=== PATIENT | female | born 1950 | race Caucasian/White ===

== ENCOUNTER → 2016-04-17 | Outpatient (CLI) | payer MEDICARE, OTHER ==
--- NOTE | 2016-04-19 08:32 | MM ---
Reason for exam: screening (asymptomatic). Last mammogram was performed 1 year and 5 months ago. History: Patient is postmenopausal. Family history of breast cancer in sister at age 54. Physical Findings: A clinical breast exam by your physician is recommended on an annual basis and results should be correlated with mammographic findings. MG 3D Screening Mammo W/Cad Bilateral CC and MLO view(s) were taken. Prior study comparison: November 13, 2014, bilateral MG screening mammo w CAD. January 09, 2014, left breast MG diagnostic mammo LT w CAD. There are scattered fibroglandular densities. No significant changes when compared with prior studies. ASSESSMENT: Negative, BI-RAD 1 RECOMMENDATION: Routine screening mammogram of both breasts in 1 year.
== END | disposition home or self-care (01) ==
LOC: RADMAMWWP 14:47
PROVIDERS: ATTEND Pediatrics
DX: Z12.31 Encounter for screening mammogram for malignant neoplasm of breast (principal)
CPT/HCPCS: 77052; 77063; G0202

== ENCOUNTER → 2016-05-25 | Outpatient (CLI) | payer MEDICARE, OTHER ==
--- NOTE | 2016-05-25 16:44 | CT ---
EXAMINATION TYPE: CT sinus wo con DATE OF EXAM: 05/25/2016 4:36 PM COMPARISON: NONE HISTORY: left sided maxillary pain CT DLP: 559.0 mGycm Automated exposure control for dose reduction was used. FINDINGS: Visualized intracranial structures are normal. Soft tissues are unremarkable. There is been a previous ethmoidectomy and bilateral Salazar-Caleb procedures.. There is minimal mucos al thickening involving the medial wall of the left sphenoid sinus. There is no bony destructive lesi on of bone expansion. IMPRESSION: 1. POSTSURGICAL CHANGE. 2. MINIMAL, CHRONIC MUCOPERIOSTEAL THICKENING INVOLVING THE LEFT SPHENOID SINUS.
== END | disposition home or self-care (01) ==
LOC: RADCTMAIN 16:18
PROVIDERS: ATTEND Otolaryngology
DX: J34.89 Other specified disorders of nose and nasal sinuses (principal); Z98.890 Other specified postprocedural states
CPT/HCPCS: 70486

== ENCOUNTER → 2016-07-03 | Outpatient (CLI) | payer MEDICARE, OTHER ==
[2016-07-03 11:38] LABS: Basophils # (A) 0.1 k/uL (0-0.2); Basophils % (A) 1 %; CH 29.1; CHCM 32.2; Eosinophils # (A) 0.2 k/uL (0-0.7); Eosinophils % (A) 3 %; HCT 41.5 % (34.0-46.0); HDW 2.62; HGB 13.3 gm/dL (11.4-16.0); Luc # (Auto) 0.23; Luc % (Auto) 3; Lymphocytes # (A) 2.7 k/uL (1.0-4.8); Lymphocytes % (A) 35 %; MCV 90.9 fL (80.0-100.0); Mean Platelet Volume 8.9; Monocytes # (A) 0.4 k/uL (0-1.0); Monocytes % (A) 5 %; Neutrophils # (A) 4.1 k/uL (1.3-7.7); Neutrophils % (A) 53 %; RBC 4.57 m/uL (3.80-5.40); RDW 13.8 % (11.5-15.5); WBC 7.7 k/uL (3.8-10.6); WBC (Perox) 7.96
[2016-07-03 11:43] LABS: INR 1.1 (<1.1); Partial Thromboplastin Time 24.4 sec (22.0-30.0); Prothrombin Time 10.7 sec (9.0-12.0)
[2016-07-03 11:56] LABS: Appearance,Urine Clear (Clear); Bilirubin,Urine Negative (Negative); Glucose,Urine (UA) Negative (Negative); Ketones,Urine Negative (Negative); Leukocyte Esterase,Urine Negative (Negative); Nitrite,Urine Negative (Negative); PH, Urine 5.5 (5.0-8.0); Protein,Urine Negative (Negative); Specific Gravity,Urine 1.005 (1.001-1.035); UA Billing (MACRO vs. MICRO) CHEM; Urobilinogen,Urine <2.0 mg/dL (<2.0)
[2016-07-03 12:03] LABS: ALT 21 U/L (9-52); AST 17 U/L (14-36); Alkaline Phosphatase 63 U/L (38-126); Anion Gap 13 mmol/L; Blood Urea Nitrogen 16 mg/dL (7-17); Calcium 9.3 mg/dL (8.4-10.2); Carbon Dioxide 29 mmol/L (22-30); Chloride 100 mmol/L (98-107); Glucose 112 mg/dL (74-99); Non-African American GFR(MDRD) >60 (>60 ml/min/1.73 sqM); Potassium 4.7 mmol/L (3.5-5.1); Sodium 142 mmol/L (137-145); Total Bilirubin 0.5 mg/dL (0.2-1.3)
== END | disposition home or self-care (01) ==
LOC: LABPAT 11:10
PROVIDERS: ATTEND Orthopaedic Surgery
DX: Z01.812 Encounter for preprocedural laboratory examination (principal)
CPT/HCPCS: 80053; 81003; 85025; 85610; 85730; 87070

== ENCOUNTER 2016-07-25 08:44 | Inpatient (IN) | payer MEDICARE, OTHER ==
[~2016-07-25 08:44] MED LIST: DEXAMETHASONE SOD PHOSPHATE 10 MG/ML 1 ML VIAL IV ONE; HYDROmorphone 1 MG/ML 1 ML SYRINGE IVP PRN; LACTATED RINGERS 1,000 ML IV SCH; MIDAZOLAM 2 MG/2 ML VIAL IV PRN; ONDANSETRON 4 MG/2 ML VIAL IVP ONE; ceFAZolin 2 GM in SODIUM CHLORIDE 0.9% 100 ML IVPB ONE
[2016-07-25] MEDS ORDERED: ROPIVACAINE 246.25 MG, EPINEPHrine 0.5 MG, KETOROLAC 30 MG, cloNIDine HCL/PF 80 MCG, WA... MISCELLANE ONE ×5 (09:14)
[2016-07-25] MEDS ORDERED: ACETAMINOPHEN TAB 500 MG TAB PO STA (09:18)
[2016-07-25] MEDS ORDERED: LIDOCAINE 1% 20 ML VIAL (10MG/ML) FOR IV START INTRADERMA ONE (09:38)
[2016-07-25] MEDS ORDERED: TRANEXAMIC ACID 1,000 MG in SODIUM CHLORIDE 0.9% 100 ML IVPB STA ×4 (09:52)
[2016-07-25] MEDS ORDERED: fentaNYL (PF) 50 MCG/ML 2 ML AMP IV ONE (10:12)
[2016-07-25] MEDS ORDERED: ROPIVACAINE 1,100 MG, SODIUM CHLORIDE 0.9% 330 ML MISCELLANE PRN ×2 (10:43)
--- NOTE | 2016-07-25 10:45 | P.ONQ ---
Anesthesiology Proc Note - PNB - Peripheral Nerve Block Performed Left Adductor Canal Infusion Time Out Performed: Yes Indication: Acute Post-Operative Pain, Analgesia Specifically requested for management of pain by DrAbigail: Jesse Doss Sedation Type: Sedate with meaningful contact maintained Preparation: Sterile Prep Position: Supine Catheter Depth at Skin (cm): 9 Catheter: Indwelling Needle Types: On-Q Needle Size: 100mm (4") Needle Gauge: 20 Technique: Ultrasound Injectate: 0.5% Ropivacaine (see comment for volume) (20 cc) Blood Aspirated: No Pain Paresthesia on Injection Noted: No Resistance on Injection: Normal Events: Uneventful and Well Tolerated
[2016-07-25] MEDS ORDERED: SODIUM CHLORIDE 0.9% 100 ML BAG ONE (11:05)
[2016-07-25] MEDS ORDERED: fentaNYL (PF) 50 MCG/ML 2 ML AMP ONE (11:05)
[2016-07-25] MEDS ORDERED: MIDAZOLAM 2 MG/2 ML VIAL ONE (11:05)
[2016-07-25] MEDS ORDERED: diphenhydrAMINE 50 MG/ML 1 ML VIAL ONE (11:05)
[2016-07-25] MEDS ORDERED: TRANEXAMIC ACID 1,000 MG/10 ML VIAL ONE (11:05)
[2016-07-25] MEDS ORDERED: ceFAZolin 3,000 MG in SODIUM CHLORIDE 0.9% IRRIGATIO 3,000 ML IRRIGATION ONE (11:36)
--- NOTE | 2016-07-25 12:35 | P.OP ---
Date of Procedure: 07/25/16 Preoperative Diagnosis: Severe osteoarthritis left knee Postoperative Diagnosis: Severe osteoarthritis left knee Procedure(s) Performed: Left total knee arthroplasty Implants: [employer]hew Oxinium femoral component size 3, left [employer]hew Rayna II left nonporous tibial baseplate size 3 [employer]hew size 11 mm Legion XLPE dished articular insert, size 3-4 [employer]hew Rayna II resurfacing patellar component, 29 mm, 7.5 mm thick All components were cemented using Ml bone cement.. The articulation is ceramic on polyethylene. Anesthesia: spinal Surgeon: Jesse Doss Consumer Educator #1: Karey Nielsen Consumer Educator #2: Raisa Ch Estimated Blood Loss (ml): 50 Pathology: other (Bone and cartilage) Condition: stable Disposition: PACU Indications for Procedure: After failure of conservative treatment we discussed the surgical and nonsurgical treatment options at length. Patient wishes to proceed with a total knee arthroplasty. Complications specific to this procedure were discussed at length, including but not limited to infection, bleeding, stiffness , and nerve injury. Patient is aware of all these complications and informed consent was obtained Operative Findings: The operative findings are consistent with severe osteoarthritis of the left knee Description of Procedure: Patient was seen in the preoperative area consent was reviewed and operative site was marked with a skin marker. An adductor canal pain catheter was placed by anesthesia in the preoperative area. Patient was then brought to the operating room and given preoperative antibiotics intravenously. A spinal anesthetic was administered by the anesthesia department. A tourniquet was placed on the upper thigh and the lower extremity was prepped and draped in usual sterile fashion. A gram of transexamic acid was given. A universal timeout was then performed which confirmed the patient's name, surgical site, ALLERGIES, and consent. The lower extremity was then exsanguinated and tourniquet was inflated to 250 mmHg. A standard and anterior midline approach to the knee was performed. The skin and subcutaneous tissue was dissected down to the patellar tendon. A medial parapatellar arthrotomy was then performed. The knee was then extended, the patellar was everted, and the knee was again flexed. Anterior horns of both menisci were excised, and a release was performed to the posterior medial aspect of the knee. On gross visual inspection, there was complete loss of articular cartilage in the medial and patellofemoral joint spaces. There was also significant cartilage damage in the lateral compartment. There were multiple periarticular osteophytes which were then removed with a Ronguer. The femoral canal was then opened with the appropriate drill, and the intramedullary femoral cutting guide was then placed and set for 4 of valgus. The distal femoral cutting block was then pinned in place, and the distal femur was then cut. The cutting block was then removed and the cut was checked for flatness. Next, the sizing guide was then placed and set for 3 external rotation based off of the epicondylar axis and Whitesides line. After the femur was sized, the appropriate 4-in-1 cutting block was then pinned in place. The anterior condyles were cut without notching. The posterior and chamfer cuts were performed while protecting the collateral ligaments. The cutting block was then removed, and the femoral canal was plugged with autologous bone. Attention was then directed to the tibia. The remaining ACL was removed with a Ronguer, and the tibia was then gently subluxed forward with a large bent knee retractor. Any remaining menisci was excised. The posterior lateral corner was cauterized in order to cauterize the lateral geniculate artery. The extra medullary tibial cutting guide was then placed, set for the appropriate rotation , slope, and depth of resection. The proximal tibia cutting guide was then pinned in place. Proximal tibia was then cut and sized. Next trials were then placed with the appropriate-sized insert. The knee was able to fully extend and flex to 130 and was stable throughout all range of motion. The knee was then extended, patella everted. Patella was then measured, and then using an osteotomy guide, the patella was cut at the appropriate level. The patella was then measured and drilled and the patella trial was then placed. The knee was then taken through range of motion with the patella trial and the patella tracked normally. The knee was then extended patella trial was then removed and the patella was everted. Knee was then flexed and lug holes were drilled through the femoral trial and the femoral trial was then removed. The tibial was then exposed, and the tibial broach guide was then pinned in place after it was set for the appropriate rotation to allow for the most coverage without overhang. The tibia was then reamed and broached. The cut surfaces of bone were then irrigated with pulsatile lavage. The posterior structures were injected with the ropivacaine solution. The knee was also irrigated with Irrisept solution. The components were then opened, the cement was mixed, and the components were then cemented in place. The cement was allowed to harden with the knee in full extension. While the cement was hardening, the remaining soft tissues were then injected with a ropivacaine solution, which consisted of 246.25 mg of ropivacaine, 0.5 mg of epinephrine, 30 mg of Toradol, 80 g of clonidine, and 48.45 mL of sterile water, for a total of 100 mL of fluid injected. After the cemented hardened. The tourniquet was released, and hemostasis was obtained. A second gram of transexamic acid was given. The knee was again irrigated. The knee was again taken through range of motion and found to be stable throughout all range of motion of 0-130 , and the patella tracked normally. The fascia was then closed with #2 strata fix suture. The subcutaneous tissue was closed with 3-0 Vicryl and 3-0 strata fix. Dermabond tape was used for the skin and placed with the knee in flexion. The patient was placed in a sterile dressing. Patient was then transferred to recovery room in stable condition. The podiatrist assistant SAÚL Haskins was required due the complexity surgery and the need for a skilled surgical scheduler. She assisted in positioning, draping , retraction, and closure of the wound.
[2016-07-25] MEDS ORDERED: BISACODYL 10 MG SUPP RECTAL PRN (12:48)
[2016-07-25] MEDS ORDERED: DIAZEPAM 5 MG TAB PO PRN ×2 (12:48)
[2016-07-25] MEDS ORDERED: HYDROcodone/APAP 5-325MG 1 EACH TAB PO PRN (12:48)
[2016-07-25] MEDS ORDERED: HYDROmorphone 1 MG/ML 1 ML SYRINGE IVP PRN ×3 (12:48)
[2016-07-25] MEDS ORDERED: MAGNESIUM HYDROXIDE 2,400 MG/10 ML CUP PO PRN (12:48)
[2016-07-25] MEDS ORDERED: NALOXONE 0.4 MG/ML 1 ML VIAL IV PRN (12:48)
[2016-07-25] MEDS ORDERED: ONDANSETRON 4 MG/2 ML VIAL IVP PRN (12:48)
--- NOTE | 2016-07-25 13:38 | XR ---
EXAMINATION TYPE: XR knee limited LT DATE OF EXAM: 07/25/2016 1:18 PM CLINICAL HISTORY: Postoperative evaluation Two views of the left knee are submitted. Identified are changes of total knee arthroplasty with fem oral and tibial components appearing well seated. Postsurgical soft tissue changes are noted. Align ment is anatomic.
[2016-07-25] MEDS: SODIUM CHLORIDE 0.9% 1,000 ML IV SCH (15:18)
[2016-07-25 15:29] VITALS: BMI 38.0
[2016-07-25] MEDS: ceFAZolin 2 GM in SODIUM CHLORIDE 0.9% 100 ML IVPB SCH (18:44)
[2016-07-25 19:06] LABS: Appearance,Urine Clear (Clear); Bilirubin,Urine Negative (Negative); Glucose,Urine (UA) Negative (Negative); Ketones,Urine Negative (Negative); Leukocyte Esterase,Urine Negative (Negative); Nitrite,Urine Negative (Negative); PH, Urine 6.5 (5.0-8.0); Protein,Urine Negative (Negative); Specific Gravity,Urine 1.003 (1.001-1.035); UA Billing (MACRO vs. MICRO) CHEM; Urobilinogen,Urine <2.0 mg/dL (<2.0)
[2016-07-25] MEDS: ASPIRIN 325 MG TAB PO SCH (20:22)
[2016-07-25] MEDS: SENNOSIDES-DOCUSATE SODIUM 1 EACH TAB PO SCH (20:25)
[2016-07-25] MEDS: DOCUSATE 100 MG CAP PO SCH (20:25)
[2016-07-25] MEDS: LISINOPRIL 10 MG TAB PO SCH (20:26)
[2016-07-25] MEDS: PANTOPRAZOLE 40 MG TABLET PO SCH (20:27)
[2016-07-25] MEDS: MONTELUKAST 10 MG TAB PO SCH (20:27)
[2016-07-25] MEDS: ATORVASTATIN 10 MG TAB PO SCH (20:27)
[2016-07-25] MEDS: FLECAINIDE 50 MG TAB PO SCH (20:27)
--- NOTE | 2016-07-25 20:50 | CONS ---
DATE OF CONSULTATION: REASON FOR CONSULTATION: Advice regarding hypertension and other multiple medical issues, requested by Dr. Doss. HISTORY OF PRESENT ILLNESS: This 66-year-old woman with a past medical history of asthma, history of GERD, hypertension, hyperlipidemia, history of DJD, history of right knee arthroplasty, being followed by a primary physician in the [place] area, underwent left total knee joint arthroplasty for severe DJD. The patient is being closely monitored at this time. There is no history of any fever, rigor, or chills. No history of any headache, loss of consciousness, seizures. No chest pain, palpitation, hematochezia, melena at this time. PAST MEDICAL HISTORY: 1. History of asthma. 2. GERD. 3. Hypertension. 4. Hyperlipidemia. 5. History of DJD. 6. Cardiac arrhythmia. 7. History of right knee arthroplasty. HOME MEDICATIONS: 1. Zocor 20 mg at bedtime. 2. Prilosec 20 mg at bedtime. 3. Singulair 10 mg at bedtime. 4. Zestril 10 mg at bedtime. 5. Levaquin 500 mg daily. 6. [place] 2 tablets q.6 p.r.n. 7. Tambocor 50 mg b.i.d. 8. Colace 100 mg b.i.d. 9. Qvar 80 mg 1 puff b.i.d. 10. Ventolin HFA 2 puffs q.6 p.r.n. ALLERGIES: NONE. FAMILY HISTORY: History of diabetes mellitus in the family. SOCIAL HISTORY: No history of smoking. No history of alcohol intake. REVIEW OF SYSTEMS: ENT: No diminishing hearing. No diminished vision. CARDIOVASCULAR SYSTEM: No angina, palpitations. RESPIRATORY: No cough, hemoptysis. GI: No nausea, vomiting. : No dysuria. NERVOUS SYSTEM: No numbness, weakness. ALLERGY/IMMUNOLOGY: As mentioned earlier. HEMATOLOGY/ONCOLOGY: No history of anemia. ENDOCRINE: As mentioned earlier. CONSTITUTIONAL: As mentioned earlier. DERMATOLOGY: Negative. RHEUMATOLOGY: Negative. PSYCHIATRY: As mentioned earlier. PHYSICAL EXAMINATION: Alert and oriented x3. Pulse 72, blood pressure 152/87, respiration 20, temperature 98.4, pulse ox 99% on room air. HEENT: Conjunctivae normal. Oral mucosa moist. NECK: No jugular venous distention. No carotid bruit. No lymph node enlargement. CARDIOVASCULAR SYSTEM: S1 normal. S2 normal. No S3. No S4. RESPIRATORY SYSTEM: Breath sounds diminished at the bases. No rhonchi. No crackles. ABDOMEN: Soft, nontender. No mass palpable. LEGS: Status post left knee arthroplasty. NERVOUS SYSTEM: Higher functions as mentioned earlier. Moves all 4 limbs. No focal motor or sensory deficit. LYMPHATICS: No lymph node palpable in neck, axillae or groin. SKIN: No ulcer, rash, bleeding. JOINTS: No active deformity. ASSESSMENT: 1. Status post left total knee joint arthroplasty. 2. History of asthma. 3. History of hypertension, essential. 4. History of hyperlipidemia. 5. History of gastroesophageal reflux disease. 6. History of degenerative joint disease. 7. History of cardiac arrhythmia. 8. History of right knee arthroplasty. 9. FULL CODE. RECOMMENDATIONS AND DISCUSSION: In this 66-year-old woman who presented with multiple complex medical issues, we will monitor the patient closely, continue the current medications, continue with symptomatic treatment. Otherwise, resume the home medications. DVT prophylaxis. Incentive spirometry. Will follow the patient closely with you. Baseline labs also will be recommended. Patient may be asked to follow up with her primary physician closely regarding the above-mentioned issues. Thank you, Dr. Doss, for letting us participate in the care of this patient.
[2016-07-25] MEDS: HYDROcodone/APAP 5-325MG 1 EACH TAB PO PRN (21:02)
[2016-07-25] MEDS: ALBUTEROL NEBULIZED 2.5 MG/3 ML INHALATION PRN (21:54)
[2016-07-25] MEDS: BUDESONIDE 0.5 MG/2 ML NEBU INHALATION SCH (21:54)
[2016-07-26] MEDS: SODIUM CHLORIDE 0.9% 1,000 ML IV SCH (00:54)
[2016-07-26] MEDS: ceFAZolin 2 GM in SODIUM CHLORIDE 0.9% 100 ML IVPB SCH (02:02)
[2016-07-26] MEDS: HYDROcodone/APAP 5-325MG 1 EACH TAB PO PRN ×3 (07:16→22:22)
[2016-07-26] MEDS: hydrOXYzine PAMOATE 25 MG CAP PO PRN ×2 (07:17→13:46)
--- NOTE | 2016-07-26 07:44 | P.PN ---
Progress Note - Text 0710 anesthesia POD 1. Patient is status post left total knee replacement under spinal anesthesia with a left adductor canal catheter placed for postoperative pain relief. Ropivacaine 0.2% is running at 8 mL per hour vas is 0, 2. Catheter site is clean and dry.
[2016-07-26 07:50] LABS: Basophils % (A) 0 %; CH 29.2; CHCM 32.8; Eosinophils % (A) 0 %; HCT 33.9 % (34.0-46.0); HDW 2.65; HGB 11.3 gm/dL (11.4-16.0); Luc # (Auto) 0.24; Luc % (Auto) 2; Lymphocytes # (A) 1.6 k/uL (1.0-4.8); Lymphocytes % (A) 14 %; MCH 29.9 pg (25.0-35.0); MCHC 33.4 g/dL (31.0-37.0); MCV 89.6 fL (80.0-100.0); Mean Platelet Volume 8.2; Monocytes # (A) 0.8 k/uL (0-1.0); Monocytes % (A) 7 %; Neutrophils # (A) 8.8 k/uL (1.3-7.7); Neutrophils % (A) 77 %; RBC 3.79 m/uL (3.80-5.40); RDW 13.6 % (11.5-15.5); WBC 11.5 k/uL (3.8-10.6); WBC (Perox) 11.79
[2016-07-26] MEDS: ALBUTEROL NEBULIZED 2.5 MG/3 ML INHALATION PRN ×2 (08:00→19:02)
[2016-07-26] MEDS: BUDESONIDE 0.5 MG/2 ML NEBU INHALATION SCH ×2 (08:00→19:02)
--- NOTE | 2016-07-26 08:00 | P.PN ---
Subjective Principal diagnosis: Status post total knee arthroplasty This is a well-appearing 66yo female who is status post total left knee arthroplasty. This is post op day #1. Patient was seen and evaluated at bedside with Dr. Doss. Patient has not been up with therapy. Patient has no new complaints. Objective - Vital Signs Vital signs: Vital Signs Temp 97.5 F L 07/26/16 07:39 Pulse 63 07/26/16 07:39 Resp 16 07/26/16 07:39 BP 101/67 07/26/16 07:39 Pulse Ox 99 07/26/16 07:39 Intake & Output 07/25/16 07/26/16 07/26/16 18:59 06:59 18:59 Intake Total 5300 1040 Output Total 650 Balance 4650 1040 Weight 94.347 kg Intake: IV 5300 Intake, IV Titration 450 Amount Sodium Chloride 0.9% 1, 450 000 ml @ 75 mls/hr IV . [id number] STEPHANY Rx#:[id number] Oral 590 Output: Urine 600 Estimated Blood Loss 50 Other: Voiding Method Toilet Toilet # Voids 1 - Exam Vital signs are stable. Calf is soft and nontender. Incision is clean, dry, and intact. Neurovascular status intact. Patient has full foot and ankle motion. Assessment and Plan (1) Osteoarthritis of right knee Status: Acute (2) Primary osteoarthritis of right knee Status: Acute (3) Status post right knee replacement Status: Acute Plan: Weightbearing as tolerated with a walker CPM daily Daily dressing changes, keep incision clean and dry Possible discharge home tomorrow.
[2016-07-26 08:19] LABS: Anion Gap 10 mmol/L; Blood Urea Nitrogen 17 mg/dL (7-17); Calcium 8.8 mg/dL (8.4-10.2); Carbon Dioxide 27 mmol/L (22-30); Chloride 105 mmol/L (98-107); Glucose 92 mg/dL (74-99); Non-African American GFR(MDRD) >60 (>60 ml/min/1.73 sqM); Potassium 4.1 mmol/L (3.5-5.1); Sodium 142 mmol/L (137-145)
[2016-07-26] MEDS ORDERED: MELOXICAM 7.5 MG TAB PO SCH ×2 (09:00)
[2016-07-26] MEDS: MELOXICAM 7.5 MG TAB PO SCH (09:13)
[2016-07-26] MEDS: FLECAINIDE 50 MG TAB PO SCH ×2 (09:13→20:31)
[2016-07-26] MEDS: DOCUSATE 100 MG CAP PO SCH ×2 (09:13→20:31)
[2016-07-26] MEDS: ASPIRIN 325 MG TAB PO SCH ×2 (09:13→20:31)
--- NOTE | 2016-07-26 18:21 | PN ---
DATE OF SERVICE: 07/26/2016 This 66-year-old woman who was admitted after left total knee arthroplasty has improved significantly. The patient is complaining of some numbness of the left leg. No chest or palpitation. No fever. On exam, alert and oriented x3. Pulse is 89. Blood pressure 126/73, respiration 17, temperature 98.6, pulse ox 96% on room air. HEENT: Conjunctivae normal. NECK: No jugular venous distention. CARDIOVASCULAR SYSTEM: S1, S2 muffled. RESPIRATORY SYSTEM: Breath sounds diminished at the bases. No rhonchi. No crackles. ABDOMEN: Soft, non-tender. LEGS: Status post left knee arthroplasty. NERVOUS SYSTEM: No focal deficit. LABS: WBC 11.5, hemoglobin 11.3. BMP within normal limits. ASSESSMENT: 1. Status post left total knee arthroplasty. 2. Increased white count, possibly reactive. 3. Anemia, normocytic; anemia of chronic disease. 4. History of asthma. 5. History of hypertension, essential. 6. History of hyperlipidemia. 7. History of gastroesophageal reflux disease. 8. History of degenerative joint disease. 9. History of cardiac arrhythmia. 10. History of right knee arthroplasty. 11. FULL CODE. RECOMMENDATIONS AND DISCUSSION: In this 66-year-old woman who presented with multiple complex medical issues, we will monitor the patient closely, continue the current medication, continue with symptomatic treatment. I recommend incentive spirometry. Resume the rest of the medication. DVT prophylaxis. Repeat labs. Closely follow with the primary physician. Further recommendations to follow.
[2016-07-26] MEDS: SENNOSIDES-DOCUSATE SODIUM 1 EACH TAB PO SCH (20:31)
[2016-07-26] MEDS: PANTOPRAZOLE 40 MG TABLET PO SCH (20:31)
[2016-07-26] MEDS: LISINOPRIL 10 MG TAB PO SCH (20:32)
[2016-07-26] MEDS: MONTELUKAST 10 MG TAB PO SCH (20:32)
[2016-07-26] MEDS: ATORVASTATIN 10 MG TAB PO SCH (20:32)
[2016-07-27] MEDS: BUDESONIDE 0.5 MG/2 ML NEBU INHALATION SCH (07:12)
[2016-07-27] MEDS: DOCUSATE 100 MG CAP PO SCH (07:29)
[2016-07-27] MEDS: ASPIRIN 325 MG TAB PO SCH (07:29)
[2016-07-27] MEDS: MELOXICAM 7.5 MG TAB PO SCH (07:29)
[2016-07-27] MEDS: FLECAINIDE 50 MG TAB PO SCH (07:29)
[2016-07-27] MEDS: PANTOPRAZOLE 40 MG TABLET PO SCH (07:30)
[2016-07-27] MEDS: HYDROcodone/APAP 5-325MG 1 EACH TAB PO PRN (07:31)
--- NOTE | 2016-07-27 07:56 | P.PN ---
Progress Note - Text The patient is status post left adductor canal catheter placement. The catheter was placed for postoperative pain control, status post total left arthroplasty. Ropivacaine 0.2% is infusing at 8 mLs per hour. The patient has no complaints of left lower extremity numbness or weakness. Patient's VAS score is 2-10. Assessment: Patient's adductor canal catheter is in place and working appropriately. Plan: continue infusion and adjust it as needed.
[2016-07-27 08:01] VITALS: BP 118/76; PULSE 81; RESP 17; TEMP 98.6
--- NOTE | 2016-07-27 08:28 | P.DS ---
Providers Date of admission: 07/25/16 08:44 Expected date of discharge: 07/27/16 Attending physician: Jesse Doss Consults: 07/25/16 12:48 Consult Physician Routine Consulting Provider: Sathish Cohen Consult Reason/Comments: medical management Do you want consulting provider notified?: Yes Primary care physician: Stated None - Discharge Diagnosis(es) (1) Osteoarthritis of right knee Current Visit: No Status: Acute (2) Primary osteoarthritis of right knee Current Visit: No Status: Acute (3) Status post right knee replacement Current Visit: No Status: Acute Hospital Course: This is a 66-year-old female with known history of degenerative arthritis of the left knee. The patient presents for evaluation. After discussion and consideration patient elects to proceed with total knee arthroplasty. The patient is seen preoperatively by Dr. Doss and cleared for surgery. Patient is admitted to [facility] on 07/25/2016 for total knee arthroplasty. The procedures performed without complication or sequelae. The patient is doing well postoperatively. Labs and vital signs are stable on day of discharge. On day of discharge patient's knee incision is healing well. There is minimal erythema. There is no drainage noted at this time. There is minimal soft tissue swelling to the knee. Patient has full foot and ankle motion without difficulty or pain. Neurovascular status to the left lower extremity is intact. Patient is discharged home in good condition. Please see med rec for accurate list of home medications. Plan - Discharge Summary New Discharge Prescriptions: Aspirin 325 mg PO BID #60 tab HYDROcodone/APAP 5-325MG [[place] 5-325] 1 - 2 tab PO Q4-6H PRN #90 tab PRN Reason: Pain Sennosides-Docusate Sodium [Senokot-S] 1 tab PO BID #60 tablet Discharge Medication List Albuterol Sulfate [Ventolin HFA] 2 puff INHALATION RT-Q6H PRN 06/15/14 [History] Beclomethasone Dipropionate [Qvar 80 mcg/puff] 1 puff INHALATION RT-BID [History] Flecainide [Tambocor] 50 mg PO Q12HR 06/15/14 [History] Lisinopril [Zestril] 10 mg PO HS 06/15/14 [History] Omeprazole [PriLOSEC] 20 mg PO HS 06/15/14 [History] Simvastatin [Zocor] 20 mg PO HS 06/15/14 [History] Montelukast [Singulair] 10 mg PO HS 04/27/15 [History] Docusate [Colace] 100 mg PO BID #60 capsule 09/15/15 [Rx] Levofloxacin [Levaquin] 500 mg PO DAILY #3 tab 09/15/15 [Rx] Hydrocodone/Acetaminophen [Naples 5-325] 2 tab PO Q6HR PRN 07/25/16 [History] Aspirin 325 mg PO BID #60 tab 07/27/16 [Rx] HYDROcodone/APAP 5-325MG [[place] 5-325] 1 - 2 tab PO Q4-6H PRN #90 tab 07/27/16 [ Rx] Sennosides-Docusate Sodium [Senokot-S] 1 tab PO BID #60 tablet 07/27/16 [Rx] Follow up Appointment(s)/Referral(s): [facility], [NON-STAFF] - 1 Week Jesse Doss DO [Doctor of Osteopathic Medicine] - 2 Weeks Ambulatory/Diagnostic Orders: Continuous Passive Motion (CPM) Machine [DME.AMB1] Location: Determined By Patient Patient Instructions/Handouts: Joint Replacement Surgery (DC) Activity/Diet/Wound Care/Special Instructions: Weightbearing as tolerated with a walker CPM 5-6h daily Daily dressing changes, keep incision clean and dry May shower if no drainage from the incision [facility] with questions or concerns [phone] Discharge Disposition: HOME WITH HOME HEALTH SERVICES
--- NOTE | 2016-07-28 07:45 | PN ---
DATE OF SERVICE: 07/27/2016 This is a 66-year-old woman who was admitted after left total knee arthroplasty, improving significantly. No chest pain or palpitation. No fever. On exam, alert and oriented x3. Pulse 78, blood pressure 118/76, respirations 17, temperature 98.6, pulse ox 94% on room air. HEENT: Conjunctivae normal. NECK: No jugular venous distension. CARDIOVASCULAR SYSTEM: S1, S2, muffled. RESPIRATORY: Breath sounds diminished at the bases. No rhonchi, no crackles. ABDOMEN: Soft. LEGS: Status post surgery. NERVOUS SYSTEM: No focal deficits. Labs are noted. WBC is 11.5. ASSESSMENT: 1. Status post left total knee arthroplasty. 2. Increased WBC, possibly reactive. 3. Anemia, normocytic anemia of chronic disease. 4. History of asthma. 5. History of hypertension, essential. 6. History of hyperlipidemia. 7. History of gastroesophageal reflux disease. 8. History of degenerative joint disease. 9. History of cardiac arrhythmia. 10. History of right knee arthroplasty. 11. FULL CODE. RECOMMENDATION: In this 66-year-old woman who presented with multiple medical issues, recommend to continue the current medications. Continue the symptomatic treatment. Otherwise, resume the home medications. Closely follow with the primary physician. Further recommendations to follow. The rest of the recommendations per Orthopedic Surgery.
== END 2016-07-27 13:04 | disposition home health service (06) | DRG 470 ==
LOC: 2ORMAIN 08:44 → 3SUR 12:55
PROVIDERS: ADMIT Orthopaedic Surgery; ATTEND Orthopaedic Surgery
PROC: 0SRD0J9 Replacement of Left Knee Joint with Synthetic Substitute, Cemented, Open Approach (ICD-10-PCS; principal; 2016-07-25 10:30)
DX: M17.12 Unilateral primary osteoarthritis, left knee (principal); I10 Essential (primary) hypertension; E78.5 Hyperlipidemia, unspecified; D63.8 Anemia in other chronic diseases classified elsewhere; J45.909 Unspecified asthma, uncomplicated; K21.9 Gastro-esophageal reflux disease without esophagitis; Z79.899 Other long term (current) drug therapy
CPT/HCPCS: 80048; 81003; 85025; 88300; 94640

== ENCOUNTER 2017-05-15 23:44 | Emergency (ER) | payer MEDICARE, OTHER ==
[2017-05-15 23:55] VITALS: RESP 18; TEMP 98.5
[2017-05-16] MEDS ORDERED: SODIUM CHLORIDE 0.9% 1,000 ML IV STA (00:28)
[2017-05-16] MEDS ORDERED: LABETALOL 5 MG/ML VIAL MDV IVP STA (00:30)
--- NOTE | 2017-05-16 00:51 | ED ---
Dizziness HPI - General Chief Complaint: Dizziness Stated Complaint: Shaky Time Seen by Provider: 05/16/17 00:13 Source: patient Mode of arrival: ambulatory Limitations: physical limitation - History of Present Illness Initial Comments: 67 years old female presented with lightheadedness and dizziness and started today she also is complaining about epigastric pain she denies any chest pain, she stated it is epigastric pain. Now she feels cold she also has some shakes. He denies any history of coronary artery disease does have a history of hiatal hernia and follows up with the GI doctor Dr. Gaona she does have a history of hypertension and now states that she has been compliant with her medications but blood pressure is quite high today is greater than 200 systolic in the ER. She does have a headache or vision is fine no neck stiffness does complain about chest pain and epigastric pain no nausea no vomiting no abdominal pain no frequency urgency dysuria no symptoms of TIA or CVA - Related Data Home Medications Medication Instructions Recorded Confirmed Albuterol Sulfate [Ventolin HFA] 2 puff INHALATION RT-Q6H PRN 06/15/14 07/25/16 Beclomethasone Dipropionate [Qvar 1 puff INHALATION RT-BID 06/15/14 07/25/16 80 mcg/puff] Flecainide [Tambocor] 50 mg PO Q12HR 06/15/14 07/25/16 Lisinopril [Zestril] 10 mg PO HS 06/15/14 07/25/16 Omeprazole [PriLOSEC] 20 mg PO HS 06/15/14 07/25/16 Simvastatin [Zocor] 20 mg PO HS 06/15/14 07/25/16 Montelukast [Singulair] 10 mg PO HS 04/27/15 07/25/16 Hydrocodone/Acetaminophen [[place] 2 tab PO Q6HR PRN 07/25/16 07/25/16 5-325] Previous Rx's Medication Instructions Recorded Docusate [Colace] 100 mg PO BID #60 capsule 09/15/15 Levofloxacin [Levaquin] 500 mg PO DAILY #3 tab 09/15/15 Aspirin 325 mg PO BID #60 tab 07/27/16 HYDROcodone/APAP 5-325MG [[place] 1 - 2 tab PO Q4-6H PRN #90 tab 07/27/16 5-325] Sennosides-Docusate Sodium 1 tab PO BID #60 tablet 07/27/16 [Senokot-S] Allergies Allergy/AdvReac Type Severity Reaction Status Date / Time No Known Allergies Allergy Verified 05/15/17 23:55 Review of Systems ROS Statement: Those systems with pertinent positive or pertinent negative responses have been documented in the HPI. ROS Other: All systems not noted in ROS Statement are negative. Past Medical History Past Medical History: Asthma, GERD/Reflux, Hyperlipidemia, Hypertension Additional Past Medical History / Comment(s): ARRYTHMIA,varicose veins History of Any Multi-Drug Resistant Organisms: None Reported Past Surgical History: Joint Replacement, Orthopedic Surgery Additional Past Surgical History / Comment(s): 09/13/15 Total R knee arthroplasty. Other surgical HX: RIGHT KNEE SCOPE, EGD's with bx and colonoscopies with polypectomies. TLK Past Anesthesia/Blood Transfusion Reactions: No Reported Reaction Past Psychological History: No Psychological Hx Reported Smoking Status: Never smoker Past Alcohol Use History: None Reported Past Drug Use History: None Reported - Past Family History Mother Family Medical History: Diabetes Mellitus Additional Family Medical History / Comment(s): alive at age 92 Father Family Medical History: No Reported History Additional Family Medical History / Comment(s): 40 yrs ago at the age of 75 yrs. General Exam - General Exam Comments Initial Comments: General: The patient is awake and alert, in no distress, and does not appear acutely ill. Slight shakes Skin: Skin is warm and dry and no rashes or lesions are noted. Eye: Pupils are equal, round and reactive to light, extra-ocular movements are intact; there is normal conjunctiva bilaterally. Ears, nose, mouth and throat: There are moist mucous membranes and no oral lesions. Neck: The neck is supple, there is no tenderness or JVD. Cardiovascular: There is a regular rate and rhythm. No murmur, rub or gallop is appreciated. Respiratory: To auscultation bilateral, no wheezing no rhonchi no distress respiratory borjas noticed Gastrointestinl notice mild tenderness in the epigastric area Back: There is no tenderness to palpation in the midline. There is no obvious deformity. Musculoskeletal: Normal ROM, no tenderness, There is no pedal edema. There is no calf tenderness or swelling. No cords were appreciated. Neurological: CN II-XII intact, Cranial nerves III through XII are intact. There are no obvious motor or sensory deficits. Coordination appears grossly intact. Speech is normal. Psychiatric: Cooperative, appropriate mood & affect, normal judgment. Limitations: physical limitation Course Vital Signs 05/15/17 05/16/17 05/16/17 23:50 00:54 02:06 Temperature 98.5 F Pulse Rate 80 66 Respiratory 18 18 Rate Blood Pressure 201/96 147/65 133/60 O2 Sat by Pulse 99 98 98 Oximetry She is reassessed at 2 AM, she feels better she is not dizzy anymore investigations were reviewed white count is 7.3 troponin is negative urinalysis did show small amount of leukocyte esterase and a few white cells chest x-ray showed slightly enlarged heart head CT is normal a blood pressure was quite high when she came and there was a 200 systolic now is 133 we did plan to give her some labetalol but on recheck it dropped down to 150 systolic and she wants to go home At 2:30 she ambulated well with the RN she was to go home and a she does see Dr. Donovan every 6 months we will send her back to Dr. Donovan for outpatient follow-up on her chest pain though she insisted that was her epigastric pain considering she 67 and the side of caution outpatient stress test to be appropriate intervention at this point - Reevaluation(s) Reevaluation #1: He does have a history of hiatal hernia and she has been seeing Dr. Gaona for that as a matter of fact she seen Dr. Gaona today 05/16/17 02:47 EKG Findings - EKG Comments: EKG Findings:: EKG is normal sinus rhythm ventricular rate is 86 [place] interval is 156 QRS duration is 78 QT/QTc is 362/433 review of this EKG reveals T-wave inversion in leads [address] elevation or ST depression noticed the rest of the leads Medical Decision Making - Lab Data Result diagrams: 05/16/17 00:01 05/16/17 00:01 Lab Results 05/16/17 05/16/17 05/16/17 Range/Units 00:01 00:01 00:01 WBC 11.3 H (3.8-10.6) k/uL RBC 4.37 (3.80-5.40) m/uL Hgb 12.9 (11.4-16.0) gm/dL Hct 39.8 (34.0-46.0) % MCV 90.9 (80.0-100.0) fL MCH 29.5 (25.0-35.0) pg MCHC 32.5 (31.0-37.0) g/dL RDW 13.9 (11.5-15.5) % Plt Count 281 (150-450) k/uL Neutrophils % 57 % Lymphocytes % 32 % Monocytes % 6 % Eosinophils % 1 % Basophils % 1 % Neutrophils # 6.5 (1.3-7.7) k/uL Lymphocytes # 3.7 (1.0-4.8) k/uL Monocytes # 0.7 (0-1.0) k/uL Eosinophils # 0.1 (0-0.7) k/uL Basophils # 0.1 (0-0.2) k/uL Sodium 142 (137-145) mmol/L Potassium 4.6 (3.5-5.1) mmol/L Chloride 104 (98-107) mmol/L Carbon Dioxide 28 (22-30) mmol/L Anion Gap 10 mmol/L BUN 22 H (7-17) mg/dL Creatinine 0.70 (0.52-1.04) mg/dL Est GFR (MDRD) Af Amer >60 (>60 ml/min/1.73 sqM) Est GFR (MDRD) Non-Af >60 (>60 ml/min/1.73 sqM) Glucose 136 H (74-99) mg/dL Calcium 9.5 (8.4-10.2) mg/dL Total Bilirubin 0.4 (0.2-1.3) mg/dL AST 27 (14-36) U/L ALT 20 (9-52) U/L Alkaline Phosphatase 75 (38-126) U/L Troponin I <0.012 (0.000-0.034) ng/mL Total Protein 7.6 (6.3-8.2) g/dL Albumin 4.5 (3.5-5.0) g/dL Urine Color Urine Appearance (Clear) Urine pH (5.0-8.0) Ur Specific [place] (1.001-1.035) Urine Protein (Negative) Urine Glucose (UA) (Negative) Urine Ketones (Negative) Urine Blood (Negative) Urine Nitrite (Negative) Urine Bilirubin (Negative) Urine Urobilinogen (<2.0) mg/dL Ur Leukocyte Esterase (Negative) Urine RBC (0-5) /hpf Urine WBC (0-5) /hpf Ur Squamous Epith Cells (0-4) /hpf Urine Mucus (None) /hpf 05/16/17 Range/Units 00:40 WBC (3.8-10.6) k/uL RBC (3.80-5.40) m/uL Hgb (11.4-16.0) gm/dL Hct (34.0-46.0) % MCV (80.0-100.0) fL MCH (25.0-35.0) pg MCHC (31.0-37.0) g/dL RDW (11.5-15.5) % Plt Count (150-450) k/uL Neutrophils % % Lymphocytes % % Monocytes % % Eosinophils % % Basophils % % Neutrophils # (1.3-7.7) k/uL Lymphocytes # (1.0-4.8) k/uL Monocytes # (0-1.0) k/uL Eosinophils # (0-0.7) k/uL Basophils # (0-0.2) k/uL Sodium (137-145) mmol/L Potassium (3.5-5.1) mmol/L Chloride (98-107) mmol/L Carbon Dioxide (22-30) mmol/L Anion Gap mmol/L BUN (7-17) mg/dL Creatinine (0.52-1.04) mg/dL Est GFR (MDRD) Af Amer (>60 ml/min/1.73 sqM) Est GFR (MDRD) Non-Af (>60 ml/min/1.73 sqM) Glucose (74-99) mg/dL Calcium (8.4-10.2) mg/dL Total Bilirubin (0.2-1.3) mg/dL AST (14-36) U/L ALT (9-52) U/L Alkaline Phosphatase (38-126) U/L Troponin I (0.000-0.034) ng/mL Total Protein (6.3-8.2) g/dL Albumin (3.5-5.0) g/dL Urine Color Light Yellow Urine Appearance Clear (Clear) Urine pH 5.5 (5.0-8.0) Ur Specific [place] 1.005 (1.001-1.035) Urine Protein Negative (Negative) Urine Glucose (UA) Negative (Negative) Urine Ketones Negative (Negative) Urine Blood Negative (Negative) Urine Nitrite Negative (Negative) Urine Bilirubin Negative (Negative) Urine Urobilinogen <2.0 (<2.0) mg/dL Ur Leukocyte Esterase Small H (Negative) Urine RBC 1 (0-5) /hpf Urine WBC 8 H (0-5) /hpf Ur Squamous Epith Cells 1 (0-4) /hpf Urine Mucus Rare H (None) /hpf Disposition Clinical Impression: Dizziness, Epigastric pain Clinical Impression: (Ruled Out): Chest pain Disposition: HOME SELF-CARE Condition: Good Referrals: Nonstaff,Physician [Primary Care Provider] - 1-2 days Nimco Donovan MD [STAFF PHYSICIAN] - 1-2 days
[2017-05-16 00:53] LABS: ALT 20 U/L (9-52); AST 27 U/L (14-36); Albumin 4.5 g/dL (3.5-5.0); Alkaline Phosphatase 75 U/L (38-126); Anion Gap 10 mmol/L; Blood Urea Nitrogen 22 mg/dL (7-17); Calcium 9.5 mg/dL (8.4-10.2); Carbon Dioxide 28 mmol/L (22-30); Chloride 104 mmol/L (98-107); Glucose 136 mg/dL (74-99); Potassium 4.6 mmol/L (3.5-5.1); Sodium 142 mmol/L (137-145); Total Bilirubin 0.4 mg/dL (0.2-1.3); Total Protein 7.6 g/dL (6.3-8.2)
[2017-05-16 00:57] LABS: Basophils # (A) 0.1 k/uL (0-0.2); Basophils % (A) 1 %; Eosinophils # (A) 0.1 k/uL (0-0.7); Eosinophils % (A) 1 %; HCT 39.8 % (34.0-46.0); HGB 12.9 gm/dL (11.4-16.0); Lymphocytes # (A) 3.7 k/uL (1.0-4.8); Lymphocytes % (A) 32 %; MCH 29.5 pg (25.0-35.0); MCHC 32.5 g/dL (31.0-37.0); MCV 90.9 fL (80.0-100.0); Mean Platelet Volume 8.9; Monocytes # (A) 0.7 k/uL (0-1.0); Monocytes % (A) 6 %; Neutrophils # (A) 6.5 k/uL (1.3-7.7); Neutrophils % (A) 57 %; Platelet Count 281 k/uL (150-450); RBC 4.37 m/uL (3.80-5.40); RDW 13.9 % (11.5-15.5); WBC 11.3 k/uL (3.8-10.6)
[2017-05-16 01:03] LABS: Appearance,Urine Clear (Clear); Bilirubin,Urine Negative (Negative); Blood,Urine Negative (Negative); Color,Urine Light Yellow; Glucose,Urine (UA) Negative (Negative); Ketones,Urine Negative (Negative); Leukocyte Esterase,Urine Small (Negative); Mucus,Urine Rare /hpf; Nitrite,Urine Negative (Negative); PH, Urine 5.5 (5.0-8.0); Protein,Urine Negative (Negative); RBC,Urine 1 /hpf (0-5); Specific Gravity,Urine 1.005 (1.001-1.035); Squamous Epithelial Cell,Urine 1 /hpf (0-4); Urobilinogen,Urine <2.0 mg/dL (<2.0); WBC,Urine 8 /hpf (0-5)
--- NOTE | 2017-05-16 01:16 | CT ---
EXAMINATION TYPE: CT brain wo con DATE OF EXAM: 05/16/2017 COMPARISON: NONE HISTORY: Prior CT sinus on synapse, SOB and shakey today CT DLP: 1047.10 mGycm Automated exposure control for dose reduction was used. FINDINGS: Ventricles and sulci appear normal. There is no mass effect or midline shift. There is no sign of int racranial hemorrhage. The calvarium is intact. IMPRESSION: NEGATIVE CT SCAN OF THE BRAIN.
--- NOTE | 2017-05-16 01:18 | XR ---
EXAMINATION TYPE: XR chest 2V DATE OF EXAM: 05/16/2017 COMPARISON: 09/11/2015 HISTORY: Chest pain cough TECHNIQUE: Frontal and lateral views of the chest are obtained. FINDINGS: Heart appears enlarged. There is no heart failure. Lungs are clear of infiltrate. There is no pleural effusion. There are chest leads. IMPRESSION: Cardiomegaly. Heart appears increased compared to old exam. No heart failure.
[2017-05-16 02:06] VITALS: BP 133/60; PULSE 66
== END 2017-05-16 03:00 | disposition home or self-care (01) ==
LOC: EC 23:44
DX: R42 Dizziness and giddiness (principal); R10.13 Epigastric pain; R07.9 Chest pain, unspecified; R51 Headache; J45.909 Unspecified asthma, uncomplicated; K21.9 Gastro-esophageal reflux disease without esophagitis; E78.5 Hyperlipidemia, unspecified; I10 Essential (primary) hypertension; Z79.52 Long term (current) use of systemic steroids; Z79.899 Other long term (current) drug therapy
CPT/HCPCS: 36415; 70450; 71046; 80053; 81001; 84484; 85025; 93005; 99284

== ENCOUNTER → 2017-05-29 | Outpatient (CLI) | payer MEDICARE, OTHER ==
--- NOTE | 2017-05-29 10:16 | US ---
EXAMINATION TYPE: US abdomen complete DATE OF EXAM: 05/29/2017 COMPARISON: 07/13/2014 CLINICAL HISTORY: 67-year-old female with R10.9 Abdominal pain. RUQ pain Technique: Multiple sonographic images of the abdomen are obtained. FINDINGS: Liver Length: 11.4 cm Gallbladder Wall: 0.2 cm CBD: 0.3 cm Spleen: 7.3 cm Right Kidney: 11.5 x 3.6 x 5.4 cm Left Kidney: 10.7 x 5.6 x 5.4 cm Pancreas: visualized portions wnl Liver: Complex cyst with internal septations in the peripheral right lobe measures 3.6 x 3.2 x 2.9 c m. Previously, this measured 3.4 x 3.0 x 2.6 cm. No other focal lesion seen. Gallbladder: No abnormal gallbladder distention, wall thickening, pericholecystic fluid, or shadowin g calculi. A junctional fold is noted. Evidence for sonographic Hale's sign: No CBD: wnl Spleen: wnl Right Kidney: No hydronephrosis. Left Kidney: No hydronephrosis. Upper IVC: wnl Abd Aorta: wnl IMPRESSION: Redemonstrated mildly complex cyst in the peripheral right liver lobe. This measures 3.6 x 3.2 cm ayleen stanton 3.4 x 3.0 cm in 2015. A benign cyst is favored. Considering the minimal increase in size, conside r annual surveillance.
--- NOTE | 2017-05-29 10:36 | US ---
EXAMINATION TYPE: US pelvis complete transvag DATE OF EXAM: 05/29/2017 COMPARISON: None CLINICAL HISTORY: 67-year-old female R10.9, unspecified abdominal pain. TECHNIQUE: Transvaginal (TV) and Transabdominal (TA) . Transabdominal sonographic images of the pel vis were acquired. Transvaginal sonographic images were medically necessary to better assess the fol lowing anatomy: endometrium and ovaries Date of LMP: post menopausal FINDINGS: Uterus: Anteverted measuring 7.6 x 2.9 x 5.3 cm Endometrial Stripe: 0.9 cm, thickened and mildly heterogeneous for a postmenopausal female. Right Ovary: not visualized due to bowel gas Left Ovary: not visualized due to bowel gas No evidence of adnexal abnormality or cul-de-sac free fluid. IMPRESSION: 1. The endometrial stripe measures thick (9 mm) for a postmenopausal female. Correlate for any postme nopausal bleeding. Further workup as indicated as etiologies including endometrial hyperplasia, polyp , and endometrial carcinoma are in the differential. 2. Neither ovary could be visualized secondary to bowel gas.
== END | disposition home or self-care (01) ==
LOC: RADUSWWP 08:18
DX: K76.89 Other specified diseases of liver (principal); N95.0 Postmenopausal bleeding
CPT/HCPCS: 76700; 76830; 76856

== ENCOUNTER → 2017-06-06 | Outpatient (CLI) | payer MEDICARE, OTHER ==
--- NOTE | 2017-06-07 10:10 | MM ---
Reason for exam: screening (asymptomatic). Last mammogram was performed 1 year and 2 months ago. History: Patient is postmenopausal. Family history of breast cancer in sister at age 54. Physical Findings: A clinical breast exam by your physician is recommended on an annual basis and results should be correlated with mammographic findings. MG 3D Screening Mammo W/Cad Bilateral CC and MLO view(s) were taken. Prior study comparison: April 17, 2016, bilateral MG 3d screening mammo w/cad. November 13, 2014, bilateral MG screening mammo w CAD. There are scattered fibroglandular densities. Finding: There are typically benign vascular, round calcifications in both breasts. There is no discrete abnormality. ASSESSMENT: Benign, BI-RAD 2 RECOMMENDATION: Routine screening mammogram of both breasts in 1 year.
== END | disposition home or self-care (01) ==
LOC: RADMAMWWP 14:15
PROVIDERS: ATTEND Pediatrics
DX: Z12.31 Encounter for screening mammogram for malignant neoplasm of breast (principal)
CPT/HCPCS: 77063; 77067

== ENCOUNTER → 2017-08-01 | Outpatient (CLI) | payer MEDICARE, OTHER ==
[2017-08-01 10:08] VITALS: BP 127/64; PULSE 70; TEMP 97.7; BMI 38.4
--- NOTE | 2017-08-01 11:18 | P.HPOB ---
History of Present Illness H&P Date: 08/01/17 Chief Complaint: The patient is here for her routine gynecologic exam. This is a 67-year-old with an LMP of 2004. The patient is here to establish with this office. It has been more than 10 years since her last pelvic exam. She developed mild low abdominal pains about 2 months ago and rates it at a . She states they have been intermittent. She denies any pain today. Her primary care physician ordered a pelvic ultrasound that was done on 05/29/2017. This ultrasound showed endometrial thickening of 9 mm. There were no other abnormalities noted. The patient denies any postmenopausal bleeding. She had a benign mammogram on 06/06/2017. She is otherwise without complaints. Review of Systems The patient has gained about 5 pounds over the last year. She denies respiratory or cardiac problems. G.I. occasional stomach upset. She denies maltreatment are falling. : she denies any significant problems with urinary leakage. Past Medical History Past Medical History: Asthma, GERD/Reflux, Hyperlipidemia, Hypertension Additional Past Medical History / Comment(s): ARRYTHMIA,varicose veins. Past [employer]IOR [employer] history: she has no history of STDs. History of Any Multi-Drug Resistant Organisms: None Reported Past Surgical History: Joint Replacement, Orthopedic Surgery Additional Past Surgical History / Comment(s): 09/13/15 Total R knee arthroplasty. Other surgical HX: RIGHT KNEE SCOPE, EGD's with bx and colonoscopies with polypectomies. TLK. Colonoscopy 2017 and this was her 3rd one. Past Anesthesia/Blood Transfusion Reactions: No Reported Reaction Past Psychological History: No Psychological Hx Reported Additional Psychological History / Comment(s): Pt resides with her spouse. She is independent. She drives or her davis will take her places. Smoking Status: Never smoker Past Alcohol Use History: None Reported Past Drug Use History: None Reported Additional History: She has been since 1965 and does not work outside of the home. - Past Family History Mother Family Medical History: Diabetes Mellitus Additional Family Medical History / Comment(s): alive at age 92 Father Family Medical History: No Reported History Additional Family Medical History / Comment(s): 40 yrs ago at the age of 75 yrs. Sister(s) Family Medical History: Cancer (Breast), Hyperlipidemia Medications and Allergies Home Medications Medication Instructions Recorded Confirmed Type Albuterol Sulfate [Ventolin HFA] 2 puff INHALATION RT-Q6H PRN 06/15/14 07/25/16 History Beclomethasone Dipropionate [Qvar 1 puff INHALATION RT-BID 06/15/14 07/25/16 History 80 mcg/puff] Flecainide [Tambocor] 50 mg PO Q12HR 06/15/14 07/25/16 History Lisinopril [Zestril] 10 mg PO HS 06/15/14 08/01/17 History Omeprazole [PriLOSEC] 20 mg PO HS 06/15/14 08/01/17 History Simvastatin [Zocor] 20 mg PO HS 06/15/14 08/01/17 History Montelukast [Singulair] 10 mg PO HS 04/27/15 08/01/17 History Allergies Allergy/AdvReac Type Severity Reaction Status Date / Time No Known Allergies Allergy Verified 08/01/17 09:44 Exam - Vital Signs Vital signs: Vital Signs Temp Pulse BP 08/01/17 10:04 97.7 F 70 127/64 Intake and Output 07/31/17 08/01/17 08/01/17 22:59 06:59 14:59 Other: Weight 95.254 kg Height 5'2", BMI 38.4. This is a well-developed well-nourished female who is alert and oriented times 3 in no acute distress. HEENT: Within normal limits. NECK: Supple without mass or thyromegaly. CHEST AND LUNGS: Clear to auscultation. HEART: Regular rate and rhythm. BREASTS: Are without mass or discharge. AXILLARY EXAM: Negative for adenopathy. BACK: Negative for CVA tenderness. ABDOMEN: mildly obese, soft, nontender, without palpable masses. PELVIC EXAM: Normal external genitalia with mild atrophy. Cervix and vagina appear normal with mild atrophy. There is no unusual discharge and no evidence of blood. There is no evidence of prolapse. The uterus is midposition, nongravid size and nontender. There are no palpable adnexal masses or tenderness. RECTAL EXAM: rectovaginal exam is negative for mass or tenderness and is negative for occult blood. EXTREMITIES: Nontender. IMPRESSION: 1. 67-year-old menopausal female with normal gynecologic exam. 2. Endometrial thickening (9mm) by pelvic ultrasound without postmenopausal bleeding. PLAN: 1. Pap smear was performed. 2. Self breast examination was discussed. 3. Screening mammogram was done on 06/06/2017 and was benign. She will repeat this in one year. 4. We had a long discussion regarding the endometrial thickening. We have discussed possibilities including endometrial cancer or precancerous changes. I have recommended endometrial biopsy for further evaluation. The patient is refusing this testing. We have decided to proceed with a repeat pelvic ultrasound in 6 months to see if there is change. She states she would proceed with the endometrial biopsy if there is increase in the endometrial thickness or if she is having any vaginal bleeding. She will also call if she changes her mind about the endometrial biopsy before 6 months. 5. Osteoporosis prevention was discussed. I have recommended bone density screening. She states she will have this done at the time of her pelvic ultrasound in 6 months. An order slip was given to the patient for both of these tests. 6. The patient did get a flu shot in the fall and she plans on getting one in the fall of this year. 7. She will return in one year and PRN.
--- NOTE | 2017-08-07 18:11 | P.PN ---
Progress Note - Text Progress Note Date: 08/07/17 The patient's Pap smear from 08/01/2017 was negative. This finding was left on the patient's voicemail.
== END | disposition home or self-care (01) ==
LOC: WWCWWP 09:25
PROVIDERS: ATTEND Obstetrics & Gynecology
DX: Z53.9 Procedure and treatment not carried out, unspecified reason (principal)

== ENCOUNTER 2018-06-13 08:21 | Emergency (ER) | payer MEDICARE, OTHER ==
[2018-06-13] MEDS ORDERED: ONDANSETRON 4 MG/2 ML VIAL IVP STA (08:33)
[2018-06-13] MEDS ORDERED: MECLIZINE 12.5 MG TAB PO STA (08:33)
[2018-06-13] MEDS ORDERED: SODIUM CHLORIDE 0.9% 1,000 ML IV STA (08:33)
--- NOTE | 2018-06-13 08:36 | ED ---
Nausea/Vomiting/Diarrhea HPI - General Chief complaint: Nausea/Vomiting/Diarrhea Stated complaint: NAUSEA, VOMITING Time Seen by Provider: 06/13/18 08:28 Source: patient, EMS, RN notes reviewed Mode of arrival: EMS Limitations: no limitations - History of Present Illness Initial comments: 68-year-old female presents emergency department via EMS chief complaint of dizziness, nausea vomiting. Patient states she woke up this morning felt very dizzy and started vomiting. Patient states it's worse when she turns to the right. She denies any associated headache, blurred vision or any focal weakness. She states she generalized feels weak. Denies any current chest pain but states over the last month she has pain when she was onto her sides during h er sleep. Patient does have a history of A. fib on flecainide. 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 Patient denies any diarrhea, constipation, dysuria. Patient states she is asymptomatic at rest. - Related Data Home Medications Medication Instructions Recorded Confirmed Albuterol Sulfate [Ventolin HFA] 2 puff INHALATION RT-Q6H PRN 06/15/14 06/13/18 Beclomethasone Dipropionate [Qvar 1 puff INHALATION RT-BID 06/15/14 06/13/18 80 mcg/puff] Flecainide [Tambocor] 50 mg PO Q12HR 06/15/14 06/13/18 Lisinopril [Zestril] 10 mg PO HS 06/15/14 06/13/18 Omeprazole [PriLOSEC] 20 mg PO HS 06/15/14 06/13/18 Montelukast [Singulair] 10 mg PO HS 04/27/15 06/13/18 Simvastatin [Zocor] 40 mg PO HS 06/13/18 06/13/18 Allergies Allergy/AdvReac Type Severity Reaction Status Date / Time No Known Allergies Allergy Verified 06/13/18 08:36 Review of Systems ROS Statement: Those systems with pertinent positive or pertinent negative responses have been documented in the HPI. ROS Other: All systems not noted in ROS Statement are negative. Past Medical History Past Medical History: Asthma, GERD/Reflux, Hyperlipidemia, Hypertension Additional Past Medical History / Comment(s): ARRYTHMIA,varicose veins. History of Any Multi-Drug Resistant Organisms: None Reported Past Surgical History: Joint Replacement, Orthopedic Surgery Additional Past Surgical History / Comment(s): 09/13/15 Total R knee arthroplasty. Other surgical HX: RIGHT KNEE SCOPE, EGD's with bx and colonoscopies with polypectomies. TLK. Colonoscopy 2017 and this was her 3rd one. Past Anesthesia/Blood Transfusion Reactions: No Reported Reaction Past Psychological History: No Psychological Hx Reported Smoking Status: Never smoker Past Alcohol Use History: None Reported Past Drug Use History: None Reported - Past Family History Mother Family Medical History: Diabetes Mellitus Additional Family Medical History / Comment(s): alive at age 92 Father Family Medical History: No Reported History Additional Family Medical History / Comment(s): 40 yrs ago at the age of 75 yrs. Sister(s) Family Medical History: Cancer (Breast), Hyperlipidemia General Exam Limitations: no limitations General appearance: alert, in no apparent distress Head exam: Present: atraumatic, normocephalic, normal inspection Eye exam: Present: normal appearance, PERRL, EOMI. Absent: scleral icterus, conjunctival injection, periorbital swelling ENT exam: Present: normal exam, normal oropharynx, mucous membranes moist, TM's normal bilaterally Neck exam: Present: normal inspection, full ROM. Absent: tenderness, meningismus, lymphadenopathy Respiratory exam: Present: normal lung sounds bilaterally. Absent: respiratory distress, wheezes, rales, rhonchi, stridor Cardiovascular Exam: Present: regular rate, normal rhythm, normal heart sounds. Absent: systolic murmur, diastolic murmur, rubs, gallop, clicks GI/Abdominal exam: Present: soft, normal bowel sounds. Absent: distended, tenderness, guarding, rebound, rigid Extremities exam: Present: normal inspection, full ROM, normal capillary refill, other (Full-strength and neurovascular intact all extremities). Absent: tenderness, pedal edema, joint swelling, calf tenderness Neurological exam: Present: alert, oriented X3, CN II-XII intact, reflexes normal, other (Finger to nose intact bilaterally without shooting, heel to hargrove normal). Absent: motor sensory deficit Skin exam: Present: warm, dry, intact, normal color. Absent: rash Course Vital Signs 06/13/18 06/13/18 06/13/18 08:23 09:02 10:10 Temperature 97.6 F Pulse Rate 87 82 79 Respiratory 18 14 Rate Blood Pressure 139/71 133/74 138/72 O2 Sat by Pulse 98 98 99 Oximetry Medical Decision Making - Medical Decision Making 68-year-old female presented for dizziness. Patient lab work, CT, EKG and x- ray. Patient CT shows concerns for partial empty sella and cranial increased pressure. Patient needs to be evaluated by neurology. Case discussed with Lucho Cardenas who accepts transfer for neurology evaluation. - Lab Data Result diagrams: 06/13/18 08:46 06/13/18 08:46 Lab Results 06/13/18 06/13/18 06/13/18 Range/Units 08:46 08:46 08:46 WBC 8.3 (3.8-10.6) k/uL RBC 4.57 (3.80-5.40) m/uL Hgb 13.2 (11.4-16.0) gm/dL Hct 40.6 (34.0-46.0) % MCV 88.9 (80.0-100.0) fL MCH 28.8 (25.0-35.0) pg MCHC 32.4 (31.0-37.0) g/dL RDW 14.2 (11.5-15.5) % Plt Count 248 (150-450) k/uL Neutrophils % 58 % Lymphocytes % 32 % Monocytes % 5 % Eosinophils % 3 % Basophils % 1 % Neutrophils # 4.8 (1.3-7.7) k/uL Lymphocytes # 2.7 (1.0-4.8) k/uL Monocytes # 0.4 (0-1.0) k/uL Eosinophils # 0.2 (0-0.7) k/uL Basophils # 0.1 (0-0.2) k/uL PT 10.1 (9.0-12.0) sec INR 0.9 (<1.2) APTT 23.1 (22.0-30.0) sec Sodium 142 (137-145) mmol/L Potassium 4.2 (3.5-5.1) mmol/L Chloride 104 (98-107) mmol/L Carbon Dioxide 29 (22-30) mmol/L Anion Gap 9 mmol/L BUN 15 (7-17) mg/dL Creatinine 0.58 (0.52-1.04) mg/dL Est GFR (CKD-EPI)AfAm >90 (>60 ml/min/1.73 sqM) Est GFR (CKD-EPI)NonAf >90 (>60 ml/min/1.73 sqM) Glucose 137 H (74-99) mg/dL Calcium 9.6 (8.4-10.2) mg/dL Total Bilirubin 0.3 (0.2-1.3) mg/dL AST 20 (14-36) U/L ALT 28 (9-52) U/L Alkaline Phosphatase 64 (38-126) U/L Troponin I (0.000-0.034) ng/mL Total Protein 6.6 (6.3-8.2) g/dL Albumin 4.0 (3.5-5.0) g/dL Urine Color Urine Appearance (Clear) Urine pH (5.0-8.0) Ur Specific [place] (1.001-1.035) Urine Protein (Negative) Urine Glucose (UA) (Negative) Urine Ketones (Negative) Urine Blood (Negative) Urine Nitrite (Negative) Urine Bilirubin (Negative) Urine Urobilinogen (<2.0) mg/dL Ur Leukocyte Esterase (Negative) Urine WBC (0-5) /hpf Ur Squamous Epith Cells (0-4) /hpf Urine Mucus (None) /hpf 06/13/18 06/13/18 Range/Units 08:46 10:25 WBC (3.8-10.6) k/uL RBC (3.80-5.40) m/uL Hgb (11.4-16.0) gm/dL Hct (34.0-46.0) % MCV (80.0-100.0) fL MCH (25.0-35.0) pg MCHC (31.0-37.0) g/dL RDW (11.5-15.5) % Plt Count (150-450) k/uL Neutrophils % % Lymphocytes % % Monocytes % % Eosinophils % % Basophils % % Neutrophils # (1.3-7.7) k/uL Lymphocytes # (1.0-4.8) k/uL Monocytes # (0-1.0) k/uL Eosinophils # (0-0.7) k/uL Basophils # (0-0.2) k/uL PT (9.0-12.0) sec INR (<1.2) APTT (22.0-30.0) sec Sodium (137-145) mmol/L Potassium (3.5-5.1) mmol/L Chloride (98-107) mmol/L Carbon Dioxide (22-30) mmol/L Anion Gap mmol/L BUN (7-17) mg/dL Creatinine (0.52-1.04) mg/dL Est GFR (CKD-EPI)AfAm (>60 ml/min/1.73 sqM) Est GFR (CKD-EPI)NonAf (>60 ml/min/1.73 sqM) Glucose (74-99) mg/dL Calcium (8.4-10.2) mg/dL Total Bilirubin (0.2-1.3) mg/dL AST (14-36) U/L ALT (9-52) U/L Alkaline Phosphatase (38-126) U/L Troponin I <0.012 (0.000-0.034) ng/mL Total Protein (6.3-8.2) g/dL Albumin (3.5-5.0) g/dL Urine Color Yellow Urine Appearance Clear (Clear) Urine pH 6.5 (5.0-8.0) Ur Specific [place] 1.012 (1.001-1.035) Urine Protein Negative (Negative) Urine Glucose (UA) Negative (Negative) Urine Ketones Negative (Negative) Urine Blood Negative (Negative) Urine Nitrite Negative (Negative) Urine Bilirubin Negative (Negative) Urine Urobilinogen <2.0 (<2.0) mg/dL Ur Leukocyte Esterase Small H (Negative) Urine WBC 4 (0-5) /hpf Ur Squamous Epith Cells 1 (0-4) /hpf Urine Mucus Occasional H (None) /hpf - EKG Data EKG Comments: EKG performed at 9:00 normal sinus rhythm rate of 77 NH 156 QRS 76 QT status QTC 388/439 Disposition Clinical Impression: Dizziness, Empty sella turcica Narrative: Rule out CVA Disposition: OTHER INSTITUTION NOT DEFINED Condition: Stable Referrals: None,Stated [REFERRING] - 1-2 days - Out of Hospital Transfer - Req. Specs Out of Hospital Transfer - Requested Specifics: Other Emergency Center (Current [place])
[2018-06-13 09:02] LABS: RBC 4.57 m/uL (3.80-5.40); WBC 8.3 k/uL (3.8-10.6)
[2018-06-13 09:03] LABS: Basophils # (A) 0.1 k/uL (0-0.2); Basophils % (A) 1 %; Eosinophils # (A) 0.2 k/uL (0-0.7); Eosinophils % (A) 3 %; HCT 40.6 % (34.0-46.0); HGB 13.2 gm/dL (11.4-16.0); Lymphocytes # (A) 2.7 k/uL (1.0-4.8); Lymphocytes % (A) 32 %; MCH 28.8 pg (25.0-35.0); MCHC 32.4 g/dL (31.0-37.0); MCV 88.9 fL (80.0-100.0); Mean Platelet Volume 8.5; Monocytes # (A) 0.4 k/uL (0-1.0); Monocytes % (A) 5 %; Neutrophils # (A) 4.8 k/uL (1.3-7.7); Neutrophils % (A) 58 %; Platelet Count 248 k/uL (150-450); RDW 14.2 % (11.5-15.5)
[2018-06-13 09:14] LABS: ALT 28 U/L (9-52); AST 20 U/L (14-36); Alkaline Phosphatase 64 U/L (38-126); Anion Gap 9 mmol/L; Blood Urea Nitrogen 15 mg/dL (7-17); Calcium 9.6 mg/dL (8.4-10.2); Carbon Dioxide 29 mmol/L (22-30); Chloride 104 mmol/L (98-107); Glucose 137 mg/dL (74-99); INR 0.9 (<1.2); Partial Thromboplastin Time 23.1 sec (22.0-30.0); Potassium 4.2 mmol/L (3.5-5.1); Prothrombin Time 10.1 sec (9.0-12.0); Sodium 142 mmol/L (137-145); Total Bilirubin 0.3 mg/dL (0.2-1.3); Total Protein 6.6 g/dL (6.3-8.2)
--- NOTE | 2018-06-13 09:29 | CT ---
EXAMINATION TYPE: CT brain wo con DATE OF EXAM: 06/13/2018 COMPARISON: 05/16/2017 HISTORY: headache, dizziness CT DLP: 1060.4 mGycm Automated exposure control for dose reduction was used. FINDINGS: There is a prominent cisterna magna or less likely arachnoid cyst within the posterior fossa which is stable from prior exam. Ventricular system is midline. Mild frontal lobe atrophy is stable. No acute hemorrhage or mass effect. Calvarium intact. There is a partially empty sella turcica. A trace of fluid surrounding the optic ne rves is seen which can occasionally be associated with papilledema or benign increased intracranial h ypertension. IMPRESSION: NO ACUTE HEMORRHAGE OR MASS EFFECT. 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 PARTIALLY EMPTY SELLA TURCICA WITH A SMALL AMOUNT OF FLUID SUSPECTED SURROUNDING THE OPTIC NERVES. CA N OCCASIONALLY BE SEEN WITH BENIGN INCREASED INTRACRANIAL HYPERTENSION AND PAPILLEDEMA CORRELATE CLIN ICALLY.
--- NOTE | 2018-06-13 09:34 | XR ---
EXAMINATION TYPE: XR chest 2V DATE OF EXAM: 06/13/2018 COMPARISON: NONE TECHNIQUE: PA and lateral views submitted. HISTORY: Chest pain FINDINGS: The lungs are clear and there is no pneumothorax, pleural effusion, or focal pneumonia. Hypertrophi c and degenerative change of the spine. The heart is enlarged. Arthropathy of the shoulders. No pneum othorax. Atherosclerotic change of aorta. IMPRESSION: 1. Cardiomegaly
[2018-06-13 10:36] LABS: Appearance,Urine Clear (Clear); Bilirubin,Urine Negative (Negative); Blood,Urine Negative (Negative); Color,Urine Yellow; Glucose,Urine (UA) Negative (Negative); Ketones,Urine Negative (Negative); Leukocyte Esterase,Urine Small (Negative); Mucus,Urine Occasional /hpf; Nitrite,Urine Negative (Negative); PH, Urine 6.5 (5.0-8.0); Protein,Urine Negative (Negative); Specific Gravity,Urine 1.012 (1.001-1.035); Squamous Epithelial Cell,Urine 1 /hpf (0-4); Urobilinogen,Urine <2.0 mg/dL (<2.0); WBC,Urine 4 /hpf (0-5)
[2018-06-13 10:59] VITALS: BP 149/78; PULSE 88; RESP 16; TEMP 97.9
== END 2018-06-13 11:47 | disposition other institution (70) ==
LOC: EC 08:21
DX: E23.6 Other disorders of pituitary gland (principal); R42 Dizziness and giddiness; R11.2 Nausea with vomiting, unspecified; J45.909 Unspecified asthma, uncomplicated; K21.9 Gastro-esophageal reflux disease without esophagitis; E78.5 Hyperlipidemia, unspecified; I10 Essential (primary) hypertension; Z79.51 Long term (current) use of inhaled steroids; Z79.899 Other long term (current) drug therapy; Z96.651 Presence of right artificial knee joint
CPT/HCPCS: 36415; 93005; 80053; 84484; 85025; 85610; 85730; 81001; 71046; 70450; 99285; 96374; 96361 ×3; J2405

== ENCOUNTER → 2018-09-24 | Outpatient (CLI) | payer MEDICARE, OTHER ==
--- NOTE | 2018-09-25 09:30 | MM ---
Reason for exam: screening (asymptomatic). Last mammogram was performed 1 year and 4 months ago. History: Patient is postmenopausal. Family history of breast cancer in sister at age 54. Physical Findings: A clinical breast exam by your physician is recommended on an annual basis and results should be correlated with mammographic findings. MG 3D Screening Mammo W/Cad Bilateral CC and MLO view(s) were taken. Prior study comparison: June 06, 2017, bilateral MG 3d screening mammo w/cad. April 17, 2016, bilateral MG 3d screening mammo w/cad. The breast tissue is heterogeneously dense. This may lower the sensitivity of mammography. Finding #1: There is a 4 mm equal density (isodense), oval mass in the lower inner quadrant of the left breast. Finding #2: There are typically benign calcifications in both breasts. ASSESSMENT: Incomplete: need additional imaging evaluation, BI-RAD 0 RECOMMENDATION: Special view mammogram of the left breast. If lesion persists on supplemental views, image directed ultrasound is recommended. [facility] will attempt to contact patient to return for supplemental views and ultrasound if indicated.
== END | disposition home or self-care (01) ==
LOC: RADMAMWWP 13:56
PROVIDERS: ATTEND Pediatrics
DX: Z12.31 Encounter for screening mammogram for malignant neoplasm of breast (principal)
CPT/HCPCS: 77063; 77067

== ENCOUNTER → 2018-09-27 | Outpatient (CLI) | payer MEDICARE, OTHER ==
--- NOTE | 2018-09-30 10:30 | MM ---
Reason for exam: additional evaluation requested from abnormal screening. Last mammogram was performed less than 1 month ago. History: Patient is postmenopausal. Family history of breast cancer in sister at age 54. Physical Findings: Nurse did not find any significant physical abnormalities on exam. MG 3D Work Up W/Cad LT Spot compression CC, spot compression MLO, and LM view(s) were taken of the left breast. Prior study comparison: September 24, 2018, bilateral MG 3d screening mammo w/cad. June 06, 2017, bilateral MG 3d screening mammo w/cad. The breast tissue is heterogeneously dense. This may lower the sensitivity of mammography. There is a round, circumscribed 3mm mass at 11 o'clock on the right breast 5-6cm from nipple. Ultrasound will be performed. These results were verbally communicated with the patient and result sheet given to the patient on 09/27/18. ASSESSMENT: Incomplete: need additional imaging evaluation, BI-RAD 0 RECOMMENDATION: Ultrasound of the left breast.
--- NOTE | 2018-09-30 10:31 | USB ---
Reason for exam: additional evaluation requested from abnormal screening. History: Patient is postmenopausal. Family history of breast cancer in sister at age 54. US Breast Workup Limited LT Left limited breast ultrasound including focal area of concern, retroareolar and axilla demonstrates a 0.3 x 0.2 x 0.3cm cystic lesion at 10 o'clock, correlates with mammographic finding. These results were verbally communicated with the patient and result sheet given to the patient on 09/27/18. ASSESSMENT: Benign, BI-RAD 2 RECOMMENDATION: Return to routine screening mammogram schedule for both breasts.
== END | disposition home or self-care (01) ==
LOC: RADMAMWWP 10:13
PROVIDERS: ATTEND Pediatrics
DX: R92.8 Other abnormal and inconclusive findings on diagnostic imaging of breast (principal)
CPT/HCPCS: 77065; 76642; G0279; 77061

== ENCOUNTER → 2019-01-29 | Outpatient (CLI) | payer MEDICARE, OTHER ==
--- NOTE | 2019-01-29 16:27 | US ---
EXAMINATION TYPE: US abdomen limited DATE OF EXAM: 01/29/2019 COMPARISON: CLINICAL HISTORY: K76.9 Liver disease, unspecified. Patient states having liver disease. Hx liver cy sts. No surgeries. NPO. EXAM MEASUREMENTS: Liver Length: 16.0 cm Gallbladder Wall: 0.2 cm CBD: 0.5 cm Right Kidney: 9.6 x 4.9 x 3.5 cm Pancreas: Appears echogenic in appearance. Liver: Right lobe posterior cystic appearing lesion with septations= 3.0 x 3.2 x 2.9 cm Gallbladder: Fold visualized Evidence for sonographic Hale's sign: neg CBD: wnl Right Kidney: Medial anechoic lesion at hilum - 1.0 x 0.8 cm IMPRESSION: 1. Complex cyst with internal septations right lobe liver. 2. Small right peripelvic cyst.
== END | disposition home or self-care (01) ==
LOC: RADUSWWP 08:15
PROVIDERS: ATTEND Internal Medicine Gastroenterology
DX: K76.89 Other specified diseases of liver (principal)
CPT/HCPCS: 76705

== ENCOUNTER → 2019-04-29 | Outpatient (CLI) | payer MEDICARE, OTHER ==
[2019-04-29 11:32] VITALS: BP 142/81; PULSE 60; RESP 18; TEMP 98.4
--- NOTE | 2019-04-29 12:50 | P.HPOB ---
History of Present Illness H&P Date: 04/29/19 Chief Complaint: The patient is here for her routine gynecologic exam. This is a 69-year-old with an LMP of 2004. The patient previously had a pelvic ultrasound on 05/29/2017 which showed endometrial thickening of 9 mm without postmenopausal bleeding at that time. The patient refused endometrial biopsy at that time. She states she had one episode of postmenopausal bleeding one month ago which was just 1 spot of blood. She did not have postmenopausal bleeding before this and denies any postmenopausal bleeding after this. She is otherwise without gynecologic complaints. Review of Systems Weight has been stable. Respiratory: Occasional asthma symptoms. She denies cardiac or G.I. problems. She denies maltreatment or problems with falling. : she denies any significant problems with urinary leakage. Past Medical History Past Medical History: Asthma, GERD/Reflux, Hyperlipidemia, Hypertension Additional Past Medical History / Comment(s): ARRYTHMIA,varicose veins. History of Any Multi-Drug Resistant Organisms: None Reported Past Surgical History: Joint Replacement, Orthopedic Surgery Additional Past Surgical History / Comment(s): 09/13/15 Total R knee arthroplasty. Other surgical HX: RIGHT KNEE SCOPE, EGD's with bx and colonoscopies with polypectomies. TLK. Colonoscopy 2017 and this was her 3rd one. Past Anesthesia/Blood Transfusion Reactions: No Reported Reaction Past Psychological History: No Psychological Hx Reported Additional Psychological History / Comment(s): Pt resides with her spouse. She is independent. She drives or her davis will take her places. Smoking Status: Never smoker Past Alcohol Use History: None Reported Past Drug Use History: None Reported Additional History: She is . - Past Family History Mother Family Medical History: Diabetes Mellitus Additional Family Medical History / Comment(s): alive at age 92 Father Family Medical History: No Reported History Additional Family Medical History / Comment(s): at the age of 75 yrs. Sister(s) Family Medical History: Cancer, Hyperlipidemia Additional Family Medical History / Comment(s): Breast cancer. Medications and Allergies Home Medications Medication Instructions Recorded Confirmed Type Albuterol Sulfate [Ventolin HFA] 2 puff INHALATION RT-Q6H PRN 06/15/14 04/29/19 History Beclomethasone Dipropionate [Qvar 1 puff INHALATION RT-BID 06/15/14 04/29/19 History 80 mcg/puff] Flecainide [Tambocor] 50 mg PO Q12HR 06/15/14 04/29/19 History Omeprazole [PriLOSEC] 20 mg PO HS 06/15/14 04/29/19 History Simvastatin [Zocor] 40 mg PO HS 06/13/18 04/29/19 History Aspirin 325 mg PO DAILY 04/29/19 04/29/19 History Fluticasone Propionate [Flovent 1 puff INHALATION DAILY 04/29/19 04/29/19 History Hfa 110 mcg] Metoprolol Tartrate 25 mg PO BID 04/29/19 04/29/19 History Allergies Allergy/AdvReac Type Severity Reaction Status Date / Time No Known Allergies Allergy Verified 04/29/19 11:33 Exam Vital Signs Temp Pulse Resp BP Pulse Ox 04/29/19 11:27 98.4 F 60 18 142/81 100 Intake and Output 04/28/19 04/29/19 04/29/19 22:59 06:59 14:59 Other: Weight 95.708 kg Height 5 feet 2 inches, weight 211 pounds, BMI 38.6. This is a well-developed well-nourished female who is alert and oriented times 3 in no acute distress. HEENT: Within normal limits. NECK: Supple without mass or thyromegaly. CHEST AND LUNGS: Clear to auscultation. HEART: Regular rate and rhythm. BREASTS: Are without mass or discharge. AXILLARY EXAM: Negative for adenopathy. BACK: Negative for CVA tenderness. ABDOMEN: Soft, nontender, without palpable masses. PELVIC EXAM: Normal external genitalia with mild atrophy. Cervix and vagina appear normal of atrophy. There is no unusual discharge. There is no evidence of prolapse. The uterus is midposition, nongravid size and nontender. There are no palpable adnexal masses or tenderness. RECTAL EXAM: Rectovaginal exam is negative for mass or tenderness and is negative for occult blood. EXTREMITIES: Nontender. IMPRESSION: 1. 69-year-old menopausal female with normal gynecologic exam. 2. One episode of vaginal postmenopausal spotting 1 month ago with no physical findings at this time. 3. History of endometrial thickening(9mm) on 05/29/2017 and the patient refused endometrial biopsy at that time. The plan was to repeat endometrial thickening through pelvic ultrasound, but this was not done. PLAN: 1. Pap smear was performed. 2. Self breast awareness was discussed with the patient. 3. Screening mammogram will be due in September of 2019. The order slip was given to the patient for this. 4. Osteoporosis prevention was discussed. I have stressed the importance of adequate calcium, vitamin D and regular exercise. Recommended amounts of calcium and vitamin D were also discussed. Bone density testing will be done today. 5. Pelvic ultrasound will be scheduled to reevaluate endometrial thickness. If it is thickening or recommended some type of endometrial sampling. 6. She did receive her flu shot this past fall. 7. She was advised to return in one year for her annual well woman exam and as needed.
--- NOTE | 2019-05-05 13:16 | BD ---
EXAMINATION TYPE: Axial Bone Density DATE OF EXAM: 04/29/2019 COMPARISON: NONE CLINICAL HISTORY: Z 78.0 Height: 61 Weight: 210 FRAX RISK QUESTIONS: Alcohol (3 or more units per day): no Family History (Parent hip fracture): no Glucocorticoids (More than 3mos): yes (Ex: prednisone, prednisolone, methylprednisolone, dexamethasone, and hydrocortisone). History of Fracture in Adulthood: no Secondary Osteoporosis: 1. Type 1 Diabetes: no 2. Hyperthyroidism: no 3. Menopause before 45: no 4. Malnutrition: no 5. Chronic liver disease: no Rheumatoid Arthritis: no Current Tobacco Use: no RISK FACTORS HISTORY OF: Family History of Osteoporosis: unsure Active: yes Diet low in dairy products/other sources of calcium: no Postmenopausal woman: yes Take estrogen and/or progesterone medications: no Lost more than 2 inches in height since high school: unsure Frequent falls: no Poor Health: no Hyperparathyroidism: no Adrenal Insufficiency: no MEDICATIONS: Prednisone or other steroids: yes How Long: about 10 years Thyroid Medications: no Osteoporosis Medications: no Additional Medications: blood pressure med, cholesterol med , Vitamin D Additional History: bilateral knee replacement EXAM MEASUREMENTS: Bone mineral densitometry was performed using the [employer] System. Bone mineral density as measured about the Lumbar spine is: ----- L1-L4(G/cm2): 0.994 T Score Values are as follows: ----- L2: -2.0 ----- L3: -1.1 ----- L4: -1.6 ----- L1-L4: -1.6 Bone mineral density BASELINE Bone mineral density about the R hip (g/cm2): 0.978 Bone mineral density about the L hip (g/cm2): 0.939 T Score values are as follows: -----R Neck: -0.4 -----L Neck: -0.7 -----R Total: 0.5 -----L Total: 0.3 Bone mineral density BASELINE IMPRESSION: Osteopenia (T Score between -2.5 and -1). There is slightly increased risk of fracture and the patient may be considered for treatment. Re-Screen 2-5 years. NOTE: T-SCORE=SD OF THE YOUNG ADULT MEAN.
== END | disposition home or self-care (01) ==
LOC: WWCWWP 11:08
PROVIDERS: ATTEND Obstetrics & Gynecology
DX: Z13.820 Encounter for screening for osteoporosis (principal); Z78.0 Asymptomatic menopausal state
CPT/HCPCS: 77080

== ENCOUNTER → 2019-05-02 | Outpatient (CLI) | payer MEDICARE, OTHER ==
--- NOTE | 2019-05-03 18:20 | US ---
EXAMINATION TYPE: US pelvis complete transvag DATE OF EXAM: 05/02/2019 COMPARISON: US 05/29/2017 CLINICAL HISTORY: N95.0 Postmenopausal bleeding, R93.8 Abn findings. TECHNIQUE: . Transabdominal sonographic images of the pelvis were acquired. Transvaginal sonographi c images were medically necessary to better assess the following anatomy: Endometrium Date of LMP: Years ago EXAM MEASUREMENTS: Uterus: 5.5 x 2.5 x 3.8 cm Endometrial Stripe: Fluid is present which is an interval finding Right Ovary: 2.3 x 1.7 x 1.2 cm Left Ovary: Not visualized 1. Uterus: Anteverted 2. Endometrium: Fluid visualized within endometrium 3. Right Ovary: wnl as visualized 4. Left Ovary: Obscured by overlying bowel gas 5. Bilateral Adnexa: wnl 6. Posterior cul-de-sac: wnl IMPRESSION: Fluid within the endometrium is an interval finding, see dictated report from prior ultra sound, previous endometrial thickening, consider biopsy. Limited exam.
== END | disposition home or self-care (01) ==
LOC: RADUSWWP 15:26
PROVIDERS: ATTEND Obstetrics & Gynecology
DX: N95.0 Postmenopausal bleeding (principal); R93.89 Abnormal findings on diagnostic imaging of other specified body structures
CPT/HCPCS: 76830; 76856

== ENCOUNTER → 2019-05-09 | Outpatient (CLI) | payer MEDICARE, OTHER ==
--- NOTE | 2019-05-11 21:50 | CT ---
EXAMINATION TYPE: CT abdomen pelvis wo con DATE OF EXAM: 05/09/2019 COMPARISON: None HISTORY: 69-year-old female Abdominal pain and nausea CT DLP: 930 mGycm. Automated exposure control for dose reduction was used. TECHNIQUE: Contiguous axial scanning of the abdomen and pelvis without IV contrast. Coronal and sagit amie reconstructions performed. FINDINGS: Heart upper limits of normal in size without pericardial effusion. Scattered atelectasis lower lungs without pleural effusion. Slightly lobulated low-density lesion posterior right liver lobe measures 3.9 cm, correlating to a mi ldly complex cyst with internal septations on the 01/29/2019 ultrasound where it measured 3.2 cm. Ult rasound surveillance is recommended. Noncontrast appearance of the gallbladder, adrenal glands, kidneys, spleen, and pancreas show no lola s abnormality. No dilated small bowel, free fluid, or free air. No mesenteric or retroperitoneal lymphadenopathy. Normal appendix. Scattered mild stool. No pericolonic inflammatory change. Bladder not distended. Uterus is visualized. Neither ovary clearly delineated. No abnormal fluid dimple ection in the pelvis or pelvic lymphadenopathy. Pelvic phleboliths. Varices in the right inguinal reg ion and anterior right upper thigh. Bones: Facet arthropathy mid to lower lumbar spine with grade 1 anterolisthesis at L4-L5. IMPRESSION: 1. Lobulated complex cyst measuring 3.9 cm posterior right liver lobe. This measures 3.2 cm on the ultrasound. Ultrasound surveillance is recommended, next interval in 6 months. Biliary cysta denoma is in the differential at this time. 2. Prominent subcutaneous right inguinal varices extending into the anterior upper right thigh. 3. Otherwise, no acute inflammatory process identified in the abdomen or pelvis to explain the patien t's symptoms.
== END | disposition home or self-care (01) ==
LOC: RADCTMAIN 14:56
PROVIDERS: ATTEND Family Medicine
DX: K76.89 Other specified diseases of liver (principal); I86.8 Varicose veins of other specified sites
CPT/HCPCS: 74176

== ENCOUNTER → 2019-09-23 | Outpatient (CLI) | payer MEDICARE, OTHER ==
[2019-09-23 09:46] LABS: Basophils # (A) 0.1 k/uL (0-0.2); Basophils % (A) 1 %; Eosinophils # (A) 0.3 k/uL (0-0.7); Eosinophils % (A) 3 %; HCT 43.7 % (34.0-46.0); HGB 13.7 gm/dL (11.4-16.0); Lymphocytes # (A) 2.9 k/uL (1.0-4.8); Lymphocytes % (A) 31 %; MCH 28.6 pg (25.0-35.0); MCHC 31.4 g/dL (31.0-37.0); MCV 91.1 fL (80.0-100.0); Mean Platelet Volume 9.1; Monocytes # (A) 0.6 k/uL (0-1.0); Monocytes % (A) 6 %; Neutrophils # (A) 5.3 k/uL (1.3-7.7); Neutrophils % (A) 56 %; Platelet Count 267 k/uL (150-450); RDW 13.7 % (11.5-15.5); WBC 9.4 k/uL (3.8-10.6)
== END | disposition home or self-care (01) ==
LOC: LABPAT 08:12
PROVIDERS: ATTEND Obstetrics & Gynecology
DX: Z01.818 Encounter for other preprocedural examination (principal)
CPT/HCPCS: 36415; 85025; 93005

== ENCOUNTER → 2019-09-29 | Outpatient (CLI) | payer MEDICARE, OTHER | END | disposition home or self-care (01) | LOC: LABPAT 11:53 | PROVIDERS: ATTEND Obstetrics & Gynecology | DX: Z11.59 Encounter for screening for other viral diseases (principal) ==

== ENCOUNTER 2019-09-30 06:06 | Day surgery (SDC) | payer MEDICARE, OTHER ==
--- NOTE | 2019-09-29 16:10 | P.HPOB ---
History of Present Illness H&P Date: 09/29/19 Chief Complaint: Postmenopausal bleeding, endometrial thickening This is a 69 y.o. female, 7, para 7, who presents for dilatation and curettage with hysteroscopy due to postmenopausal bleeding and endometrial thickening on ultrasound. She had some brown bleeding when wiping in March,. It only happened the one time. She had an ultrasound that showed uterus 5.5 x 2.5 x 3.8 cm with endometrium 9 mm thickened and mildly heterogeneous. She denies any pain. OB Hx: . History of 7 vaginal deliveries. 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 Social Hx: . Retired. Originally from [place]. Review of Systems Constitutional: Denies chills, Denies fever Eyes: denies blurred vision, denies pain Ears, nose, mouth and throat: Denies headache, Denies sore throat Cardiovascular: Denies chest pain, Denies shortness of breath Respiratory: Denies cough Gastrointestinal: Denies abdominal pain, Denies diarrhea, Denies nausea, Denies vomiting Genitourinary: Reports abnormal vaginal bleeding Menstruation: Reports postmenopausal Musculoskeletal: Denies myalgias Neurological: Denies numbness, Denies weakness Psychiatric: Denies anxiety, Denies depression Past Medical History Past Medical History: Asthma, GERD/Reflux, Hyperlipidemia, Hypertension Additional Past Medical History / Comment(s): ARRYTHMIA, varicose veins. History of Any Multi-Drug Resistant Organisms: None Reported Past Surgical History: Joint Replacement, Orthopedic Surgery Additional Past Surgical History / Comment(s): left total knee. 09/13/15 Total R knee arthroplasty. Other surgical HX: RIGHT KNEE SCOPE, EGD's with bx and colonoscopies with polypectomies. TLK. Colonoscopy 2017 and this was her 3rd one. Past Anesthesia/Blood Transfusion Reactions: No Reported Reaction Past Psychological History: No Psychological Hx Reported Additional Psychological History / Comment(s): Pt resides with her spouse. She is independent. She drives or her davis will take her places. Smoking Status: Never smoker Past Alcohol Use History: None Reported Past Drug Use History: None Reported - Past Family History Mother Family Medical History: Diabetes Mellitus Additional Family Medical History / Comment(s): alive at age 92 Father Family Medical History: No Reported History Additional Family Medical History / Comment(s): at the age of 75 yrs. Sister(s) Family Medical History: Cancer, Hyperlipidemia Additional Family Medical History / Comment(s): Breast cancer. Medications and Allergies Home Medications Medication Instructions Recorded Confirmed Type Albuterol Sulfate [Ventolin HFA] 2 puff INHALATION RT-Q6H PRN 06/15/14 09/26/19 History Beclomethasone Dipropionate [Qvar 1 puff INHALATION RT-BID 06/15/14 09/30/19 History 80 mcg/puff] Flecainide [Tambocor] 50 mg PO Q12HR 06/15/14 09/30/19 History Omeprazole [PriLOSEC] 20 mg PO HS 06/15/14 09/26/19 History Simvastatin [Zocor] 40 mg PO HS 06/13/18 09/30/19 History Aspirin 325 mg PO DAILY 04/29/19 09/26/19 History Metoprolol Tartrate 25 mg PO BID 04/29/19 09/30/19 History Vitamin B Complex 1 tab PO DAILY 09/26/19 09/26/19 History Allergies Allergy/AdvReac Type Severity Reaction Status Date / Time No Known Allergies Allergy Verified 09/26/19 14:15 Exam Osteopathic Statement: *. No significant issues noted on an osteopathic structural exam other than those noted in the History and Physical/Consult. HEENT: within normal limits Heart: regular rate and rhythm Lungs: clear to auscultation bilaterally Abdomen: soft, non-tender Pelvic: uterus small, anteverted, non-tender, with no adnexal masses or t enderness Extremities: neg. Jose L's Assessment and Plan (1) Postmenopausal bleeding Current Visit: No Status: Acute Code(s): N95.0 - POSTMENOPAUSAL BLEEDING SNOMED Code(s): 73216552 (2) Endometrial thickening on ultrasound Current Visit: No Status: Acute Code(s): R93.89 - ABNORMAL FINDINGS ON DX IMAGING OF OTH BODY STRUCTURES SNOMED Code(s): 820577980 Plan: Proceed with dilatation and curettage with hysteroscopy. I have discussed the risks, benefits, and alternative therapies for the above- mentioned procedure and for both sedation/anesthesia as well as necessary blood products administration, if indicated, as they pertain to this patient. The patient has indicated her understanding and acceptance of the risks and procedures discussed.
[~2019-09-30 06:06] MED LIST changes: -DEXAMETHASONE SOD PHOSPHATE 10 MG/ML 1 ML VIAL IV ONE; -HYDROmorphone 1 MG/ML 1 ML SYRINGE IVP PRN; -MIDAZOLAM 2 MG/2 ML VIAL IV PRN; +Pre Op ABX Message 1 EACH MISC MISCELLANE ONE; -ceFAZolin 2 GM in SODIUM CHLORIDE 0.9% 100 ML IVPB ONE; +fentaNYL (PF) 50 MCG/ML 2 ML AMP IV PRN
[2019-09-30] MEDS ORDERED: ONDANSETRON 4 MG/2 ML VIAL ONE (06:35)
[2019-09-30] MEDS ORDERED: DEXAMETHASONE SOD PHOSPHATE 4 MG/ML 1 ML VIAL IVP ONE (06:37)
[2019-09-30] MEDS ORDERED: LIDOCAINE 1% (10MG/ML) FOR IV START INTRADERMA ONE (06:38)
[2019-09-30] MEDS ORDERED: KETOROLAC 30 MG/ML 1 ML VIAL ONE (07:01)
[2019-09-30] MEDS ORDERED: PROPOFOL 10 MG/ML 20 ML VIAL IV ONE (07:01)
[2019-09-30] MEDS ORDERED: MIDAZOLAM 2 MG/2 ML VIAL ONE (07:01)
[2019-09-30] MEDS ORDERED: fentaNYL (PF) 50 MCG/ML 2 ML AMP ONE (07:01)
[2019-09-30] MEDS ORDERED: LIDOCAINE 1% INJ 10MG/ML (20 ML MDV) ONE (07:01)
--- NOTE | 2019-09-30 07:29 | P.OP ---
Date of Procedure: 09/30/19 Preoperative Diagnosis: Postmenopausal bleeding Endometrial thickening on ultrasound Postoperative Diagnosis: Same Procedure(s) Performed: Dilation and curettage with hysteroscopy Anesthesia: other (Mask general) Surgeon: Brissa Gomez Estimated Blood Loss (ml): 3 Condition: stable Disposition: same day Indications for Procedure: This is a 69 y.o. female, 7, para 7, who presents for dilatation and curettage with hysteroscopy due to postmenopausal bleeding and endometrial thickening on ultrasound. She had some brown bleeding when wiping in March,. It only happened the one time. She had an ultrasound that showed uterus 5.5 x 2.5 x 3.8 cm with endometrium 9 mm thickened and mildly heterogeneous. She denies any pain. Operative Findings: Uterus is small, anteverted, sounded to 6-1/2 cm. Upon hysteroscopy, both tubal ostia are visualized. Background endometrium is very atrophic. There is a polyp noted originating from the fundus that extends through most of the endometrial cavity. Scant endometrial curettings are obtained and a small polyp was removed. Description of Procedure: The patient is taken to the operating room where she is placed in the dorsal lithotomy position. She is prepped and draped in the normal sterile fashion. Her bladder is drained with a catheter. Examination is performed under anesthesia. Uterus is found be small, anteverted, with no adnexal masses palpated. A weighted speculum was placed in the patient's vagina. A right angle retractor was used to visualize the anterior lip of the cervix. Anterior lip of the cervix was first grasped with an Allis clamp and then grasped with a single-tooth tenaculum. Uterus is sounded to 6-1/2 cm. The cervix is gently dilated with Burton dilators. Hysteroscopy was performed using normal saline. The above-noted findings were made and pictures were taken. Next a polyp forceps was introduced and the visualized polyp was removed easily. A medium- size sharp curet was introduced and sharp curettage was performed until a gritty texture was noted. Basically no further tissue was obtained. Next all instrument are removed from the vagina. All sponge counts are correct. Estimated blood loss is approximately 2-3 mL. Patient is taken to recovery room in stable condition.
[2019-09-30 07:52] VITALS: TEMP 97.4
[2019-09-30] MEDS: HYDROmorphone 0.5 MG/0.5 ML SYRINGE IVP PRN ×2 (07:55→08:14)
[2019-09-30 08:25] VITALS: PULSE 58
[2019-09-30 08:29] VITALS: RESP 16
[2019-09-30 08:42] VITALS: BP 145/82
== END 2019-09-30 09:12 | disposition home or self-care (01) ==
LOC: OR 06:06
PROVIDERS: ATTEND Obstetrics & Gynecology
DX: N84.0 Polyp of corpus uteri (principal); N95.0 Postmenopausal bleeding; I10 Essential (primary) hypertension; J45.909 Unspecified asthma, uncomplicated; E78.5 Hyperlipidemia, unspecified; E66.9 Obesity, unspecified; K21.9 Gastro-esophageal reflux disease without esophagitis; I83.90 Asymptomatic varicose veins of unspecified lower extremity; Z86.73 Personal history of transient ischemic attack (TIA), and cerebral infarction without residual deficits; Z96.653 Presence of artificial knee joint, bilateral; Z79.82 Long term (current) use of aspirin; Z79.51 Long term (current) use of inhaled steroids; Z79.899 Other long term (current) drug therapy; Z83.3 Family history of diabetes mellitus; Z80.3 Family history of malignant neoplasm of breast; Z68.38 Body mass index [BMI] 38.0-38.9, adult
CPT/HCPCS: 88305; 58558; J2250; J1100; J2405; J2001; J3010; J1885; J2704; J1170

== ENCOUNTER → 2019-10-17 | Outpatient (CLI) | payer MEDICARE, OTHER ==
--- NOTE | 2019-10-17 11:36 | FL ---
EXAMINATION TYPE: FL UGI air w small bowel DATE OF EXAM: 10/17/2019 COMPARISON: NONE HISTORY: Epigastric pain TECHNIQUE: A double contrast UGI study is performed with small bowel follow through. 1.4 minutes of fluoroscopy time utilized and 26 images submitted. FINDINGS: Liquefier image of the abdomen shows no gross abnormality. Arthropathy of the hips and degener ative change of the spine. Osteitis pubis condensans. Calcifications in pelvis appear vascular. The esophagus shows normal motility and emptying into the stomach. No evidence of hiatal hernia or s tricture noted. The stomach shows normal distensibility, peristalsis, and mucosal folds. No evidence of any mass or ulcer disease. No significant esophageal reflux was seen during real time performance of this study. The duodenal bulb and sweep are unremarkable. The small bowel study shows normal transit to the colon in less than 90 minutes. There is normal muc osal fold pattern throughout the small bowel. There is no evidence of any stricture or filling defec t noted. The terminal ileum is unremarkable. IMPRESSION: Normal upper GI study and small bowel follow through.
== END | disposition home or self-care (01) ==
LOC: RADFLMAIN 07:53
PROVIDERS: ATTEND Family Medicine
DX: R10.13 Epigastric pain (principal)
CPT/HCPCS: 74240; 74248

== ENCOUNTER → 2019-10-28 | Outpatient (CLI) | payer MEDICARE, OTHER ==
--- NOTE | 2019-10-29 08:39 | MM ---
Reason for exam: screening (asymptomatic). Last mammogram was performed 1 year and 1 month ago. History: Patient is postmenopausal. Family history of breast cancer in sister at age 54. Physical Findings: A clinical breast exam by your physician is recommended on an annual basis and results should be correlated with mammographic findings. MG 3D Screening Mammo W/Cad Bilateral CC and MLO view(s) were taken. Prior study comparison: September 27, 2018, left breast MG 3d work up w/cad LT. September 24, 2018, bilateral MG 3d screening mammo w/cad. There are scattered fibroglandular densities. There are benign appearing round vascular calcifications bilaterally. There is no discrete abnormality. ASSESSMENT: Benign, BI-RAD 2 RECOMMENDATION: Routine screening mammogram of both breasts in 1 year.
== END | disposition home or self-care (01) ==
LOC: RADMAMWWP 08:13
PROVIDERS: ATTEND Obstetrics & Gynecology
DX: Z12.31 Encounter for screening mammogram for malignant neoplasm of breast (principal)
CPT/HCPCS: 77063; 77067

== ENCOUNTER → 2019-11-05 | Outpatient (CLI) | payer MEDICARE, OTHER ==
--- NOTE | 2019-11-05 11:35 | MR ---
MR abdomen with and without contrast HISTORY: Abdominal pain and liver mass Exam is correlated to CT scan 05/09/2019 Multiplanar multisequence and postcontrast images obtained through the abdomen following 9.5 cc Gadav ist IV FINDINGS: The abnormality described on CT scan within the posterior right lobe of the liver shows a s imilar appearance to the multilocular, multiseptated T2 bright, T1 hypointense appearance measuring 3 .6 x 3.7 x 3.7 cm. Liver is enlarged. Signal drop on out of phase imaging within the liver consistent with hepatic steatosis. Gallbladder is unremarkable. Pancreas and adrenal glands are within normal l imits. Multiple T2 bright foci scattered within the kidneys likely represent cysts. The lung bases are clear. No pleural or pericardial effusion. There is no ascites or retroperitoneal adenopathy. Aorta shows normal caliber. Spleen is unremarkable. No abnormal enhancement following contrast administration. IMPRESSION: Findings likely represent multilocular cyst in the posterior right lobe of the liver. Hep atic steatosis, hepatomegaly.
== END | disposition home or self-care (01) ==
LOC: RADMRIMAIN 09:38
PROVIDERS: ATTEND Family Medicine
DX: K76.0 Fatty (change of) liver, not elsewhere classified (principal); R16.0 Hepatomegaly, not elsewhere classified
CPT/HCPCS: 74183; A9585

== ENCOUNTER → 2020-08-17 | Outpatient (CLI) | payer MEDICARE, OTHER ==
--- NOTE | 2020-08-17 09:33 | US ---
EXAMINATION TYPE: US abdomen complete DATE OF EXAM: 08/17/2020 COMPARISON: 01/29/2019 CLINICAL HISTORY: R31.9 Hematuria Q44.6 Liver Cyst. microscopic hematuria, known liver cyst, no sympt oms EXAM MEASUREMENTS: Liver Length: 15.1 cm Gallbladder Wall: 0.2 cm CBD: 0.4 cm Spleen: 8.1 cm Right Kidney: 10.2 x 5.1 x 3.8 cm Left Kidney: 10.4 x 4.0 x 4.1 cm Pancreas: wnl Liver: posterior right lobe septated cyst= 3.7 x 3.3 x 3.2cm Gallbladder: fold noted Evidence for sonographic Hale's sign: no CBD: wnl Spleen: wnl Right Kidney: wnl Left Kidney: inferior pole hypoechoic nodule 1.7 x 2.3 x 1.9cm Upper IVC: wnl Abd Aorta: wnl IMPRESSION: 1. Septated posterior segment right lobe hepatic cyst measuring 3.7 cm. Findings slightly increased f rom prior exam of 2018. 2. There is a hypoechoic nodule 2.3 cm left kidney. Likely related to simple cyst and noted on previo us MRI.
== END | disposition home or self-care (01) ==
LOC: RADUSWWP 08:49
PROVIDERS: ATTEND Family Medicine
DX: K76.89 Other specified diseases of liver (principal)
CPT/HCPCS: 76700

== ENCOUNTER 2020-10-08 | Day surgery (SDC) | payer MEDICARE, OTHER | END 2020-10-08 12:40 | disposition home or self-care (01) | CPT/HCPCS: 88305; 45385; 43239; J2704 ==

== ENCOUNTER → 2021-03-07 | Outpatient (CLI) | payer MEDICARE, OTHER ==
--- NOTE | 2021-03-07 09:50 | US ---
EXAMINATION TYPE: US liver DATE OF EXAM: 03/07/2021 COMPARISON: US CLINICAL HISTORY: R68.89 LIVER LESION. Followup from prior US EXAM MEASUREMENTS: Liver Length: 16.7 cm Gallbladder Wall: 0.2 cm CBD: 0.3 cm Right Kidney: 10.5 x 5.4 x 3.6 cm Pancreas: hyperechoic Liver: right lobe liver cyst cluster is seen = 3.1 x 3.2 x 3.2cm Gallbladder: wnl Evidence for sonographic Hale's sign: no CBD: wnl Right Kidney: No hydronephrosis or masses seen IMPRESSION: Hepatic cysts.
== END | disposition home or self-care (01) ==
LOC: RADUSWWP 09:07
PROVIDERS: ATTEND Family Medicine
DX: K76.89 Other specified diseases of liver (principal)
CPT/HCPCS: 76705

== ENCOUNTER 2021-03-16 12:33 | Emergency (ER) | payer MEDICARE, OTHER ==
[2021-03-16 12:54] VITALS: TEMP 99.5
[2021-03-16 14:20] LABS: Basophils # (A) 0.1 k/uL (0-0.2); Basophils % (A) 1 %; Eosinophils # (A) 0.1 k/uL (0-0.7); Eosinophils % (A) 1 %; HCT 41.4 % (34.0-46.0); HGB 13.6 gm/dL (11.4-16.0); Lymphocytes # (A) 2.5 k/uL (1.0-4.8); Lymphocytes % (A) 21 %; MCH 30.2 pg (25.0-35.0); MCHC 32.9 g/dL (31.0-37.0); MCV 91.7 fL (80.0-100.0); Mean Platelet Volume 8.8; Monocytes # (A) 0.7 k/uL (0-1.0); Monocytes % (A) 6 %; Neutrophils # (A) 8.6 k/uL (1.3-7.7); Neutrophils % (A) 70 %; Platelet Count 240 k/uL (150-450); RBC 4.51 m/uL (3.80-5.40); RDW 13.8 % (11.5-15.5); WBC 12.2 k/uL (3.8-10.6)
[2021-03-16 14:31] LABS: Appearance,Urine Clear (Clear); Bilirubin,Urine Negative (Negative); Blood,Urine Small (Negative); Color,Urine Yellow; Glucose,Urine (UA) Negative (Negative); Ketones,Urine Negative (Negative); Leukocyte Esterase,Urine Small (Negative); Mucus,Urine Rare /hpf; Nitrite,Urine Negative (Negative); PH, Urine 5.5 (5.0-8.0); Protein,Urine Negative (Negative); RBC,Urine 3 /hpf (0-5); Specific Gravity,Urine 1.013 (1.001-1.035); Squamous Epithelial Cell,Urine <1 /hpf (0-4); Urobilinogen,Urine <2.0 mg/dL (<2.0); WBC,Urine 3 /hpf (0-5)
[2021-03-16 14:33] LABS: INR 0.9 (<1.2); Partial Thromboplastin Time 23.1 sec (22.0-30.0)
--- NOTE | 2021-03-16 15:15 | US ---
EXAMINATION TYPE: US pelvic complete DATE OF EXAM: 03/16/2021 COMPARISON: Ultrasound 05/02/2019 CLINICAL HISTORY: postmeno bleeding. Pelvic pain TECHNIQUE: Transvaginal (TV) and Transabdominal (TA) . Transabdominal sonographic images of the pel vis were acquired. Transvaginal sonographic images were medically necessary to better assess the fol lowing anatomy: Uterus EXAM MEASUREMENTS: Uterus: 5.3 x 2.5 x 3.3 cm Endometrial Stripe: Not well delineated Right Ovary: Not seen Left Ovary: Not seen 1. Uterus: Anteverted Not well visualized due to patient age and overlying bowel gas. 2. Endometrium: Not well delineated 3. Right Ovary: Obscured by overlying bowel gas 4. Left Ovary: Obscured by overlying bowel gas 5. Bilateral Adnexa: wnl as seen 6. Posterior cul-de-sac: wnl IMPRESSION: atrophic uterus suspected.
[2021-03-16 15:44] VITALS: RESP 18
[2021-03-16 17:58] LABS: Albumin 3.9 g/dL (3.5-5.0); Calcium 9.3 mg/dL (8.4-10.2); Potassium 4.1 mmol/L (3.5-5.1); Total Bilirubin 0.4 mg/dL (0.2-1.3); Total Protein 6.9 g/dL (6.3-8.2)
--- NOTE | 2021-03-16 18:01 | ED ---
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 Reports that for the past 4 days she has had some lower abdominal discomfort itch radiates into her legs. Yesterday she began to have some dark vaginal bleeding. They that it is not enough to where up had. She denies hematuria. No rectal bleeding. She denies any back or flank pain. Reports that she had a history of similar in the past 2 years [address] She saw Dr. Gomez and had an ablation performed. Reports that her workup was negative for cancer. She has not had a pelvic exam since that time as she has not had any issues. She is not on blood thinners. No fevers or additional vaginal discha rge. No other alleviating, precipitating or modifying factors - Related Data Home Medications Medication Instructions Recorded Confirmed Albuterol Sulfate [Ventolin HFA] 2 puff INHALATION RT-Q6H PRN 06/15/14 03/16/21 Omeprazole [PriLOSEC] 20 mg PO AC-BID PRN 06/15/14 03/16/21 Simvastatin [Zocor] 40 mg PO HS 06/13/18 03/16/21 Metoprolol Tartrate 25 mg PO BID 04/29/19 03/16/21 Vitamin B Complex 1 tab PO DAILY 09/26/19 03/16/21 ALPRAZolam [Xanax] 0.25 mg PO DAILY PRN 03/16/21 03/16/21 Aspirin EC [Ecotrin Low Dose] 81 mg PO DAILY 03/16/21 03/16/21 Famotidine [Pepcid] 20 mg PO BID PRN 03/16/21 03/16/21 Flecainide [Tambocor] 50 mg PO BID 03/16/21 03/16/21 Magnesium 250 mg PO DAILY 03/16/21 03/16/21 Olopatadine Hcl Opth 0.2% 1 drop BOTH EYES BID 03/16/21 03/16/21 Allergies Allergy/AdvReac Type Severity Reaction Status Date / Time No Known Allergies Allergy Verified 03/16/21 16:29 Review of Systems ROS Statement: Those systems with pertinent positive or pertinent negative responses have been documented in the HPI. ROS Other: All systems not noted in ROS Statement are negative. Past Medical History Past Medical History: Asthma, GERD/Reflux, Hyperlipidemia, Hypertension Additional Past Medical History / Comment(s): ARRYTHMIA,varicose veins. History of Any Multi-Drug Resistant Organisms: None Reported Past Surgical History: Joint Replacement, Orthopedic Surgery Additional Past Surgical History / Comment(s): 09/13/15 Total R knee arthroplasty. LT TKA, Other surgical HX: RIGHT KNEE SCOPE, EGD's with bx and colonoscopies with polypectomies. Colonoscopy 2017 and this was her 3rd one. Past Anesthesia/Blood Transfusion Reactions: No Reported Reaction Past Psychological History: No Psychological Hx Reported Smoking Status: Never smoker Past Alcohol Use History: None Reported Past Drug Use History: None Reported - Past Family History Mother Family Medical History: Diabetes Mellitus Additional Family Medical History / Comment(s): alive at age 92 Father Family Medical History: No Reported History Additional Family Medical History / Comment(s): at the age of 75 yrs. Sister(s) Family Medical History: Cancer, Hyperlipidemia Additional Family Medical History / Comment(s): Breast cancer. General Exam Limitations: no limitations Course Vital Signs 03/16/21 03/16/21 03/16/21 12:50 13:54 15:00 Temperature 99.5 F Pulse Rate 69 72 77 Respiratory 20 15 18 Rate Blood Pressure 153/82 141/84 145/81 O2 Sat by Pulse 97 95 95 Oximetry 03/16/21 18:06 Temperature Pulse Rate 72 Respiratory 18 Rate Blood Pressure 141/87 O2 Sat by Pulse 98 Oximetry Medical Decision Making - Medical Decision Making Upon arrival patient was placed into room 12. Thorough history and physical exam is performed. IV is established and laboratory studies were conducted. Laboratory studies are reviewed. Hemoglobin 13.6. Urinalysis demonstrated small blood with 3 red blood cells. Pelvic exam is performed which demonstrates trace amount of blood. No heavy clotting or friable lesions. Pelvic ultrasound is performed which demonstrates atrophic uterus. At this time the patient will be discharged home and needs to follow up with Dr. Gomez in regards to her postmenopausal bleeding. Turn to the emergency room for any new or worsening symptoms. Patient agreed to the plan and was discharged home in stable condition - Lab Data Result diagrams: 03/16/21 14:04 03/16/21 16:56 Lab Results 03/16/21 03/16/21 03/16/21 Range/Units 14:04 14:04 14:04 WBC 12.2 H (3.8-10.6) k/uL RBC 4.51 (3.80-5.40) m/uL Hgb 13.6 (11.4-16.0) gm/dL Hct 41.4 (34.0-46.0) % MCV 91.7 (80.0-100.0) fL MCH 30.2 (25.0-35.0) pg MCHC 32.9 (31.0-37.0) g/dL RDW 13.8 (11.5-15.5) % Plt Count 240 (150-450) k/uL MPV 8.8 Neutrophils % 70 % Lymphocytes % 21 % Monocytes % 6 % Eosinophils % 1 % Basophils % 1 % Neutrophils # 8.6 H (1.3-7.7) k/uL Lymphocytes # 2.5 (1.0-4.8) k/uL Monocytes # 0.7 (0-1.0) k/uL Eosinophils # 0.1 (0-0.7) k/uL Basophils # 0.1 (0-0.2) k/uL PT 10.0 (9.0-12.0) sec INR 0.9 (<1.2) APTT 23.1 (22.0-30.0) sec Sodium (137-145) mmol/L Potassium (3.5-5.1) mmol/L Chloride (98-107) mmol/L Carbon Dioxide (22-30) mmol/L Anion Gap mmol/L BUN (7-17) mg/dL Creatinine (0.52-1.04) mg/dL Est GFR (CKD-EPI)AfAm (>60 ml/min/1.73 sqM) Est GFR (CKD-EPI)NonAf (>60 ml/min/1.73 sqM) Glucose (74-99) mg/dL Calcium (8.4-10.2) mg/dL Total Bilirubin (0.2-1.3) mg/dL AST (14-36) U/L ALT (4-34) U/L Alkaline Phosphatase (38-126) U/L Total Protein (6.3-8.2) g/dL Albumin (3.5-5.0) g/dL Lipase (23-300) U/L Urine Color Yellow Urine Appearance Clear (Clear) Urine pH 5.5 (5.0-8.0) Ur Specific [place] 1.013 (1.001-1.035) Urine Protein Negative (Negative) Urine Glucose (UA) Negative (Negative) Urine Ketones Negative (Negative) Urine Blood Small H (Negative) Urine Nitrite Negative (Negative) Urine Bilirubin Negative (Negative) Urine Urobilinogen <2.0 (<2.0) mg/dL Ur Leukocyte Esterase Small H (Negative) Urine RBC 3 (0-5) /hpf Urine WBC 3 (0-5) /hpf Ur Squamous Epith Cells <1 (0-4) /hpf Urine Mucus Rare H (None) /hpf 03/16/21 Range/Units 16:56 WBC (3.8-10.6) k/uL RBC (3.80-5.40) m/uL Hgb (11.4-16.0) gm/dL Hct (34.0-46.0) % MCV (80.0-100.0) fL MCH (25.0-35.0) pg MCHC (31.0-37.0) g/dL RDW (11.5-15.5) % Plt Count (150-450) k/uL MPV Neutrophils % % Lymphocytes % % Monocytes % % Eosinophils % % Basophils % % Neutrophils # (1.3-7.7) k/uL Lymphocytes # (1.0-4.8) k/uL Monocytes # (0-1.0) k/uL Eosinophils # (0-0.7) k/uL Basophils # (0-0.2) k/uL PT (9.0-12.0) sec INR (<1.2) APTT (22.0-30.0) sec Sodium 139 (137-145) mmol/L Potassium 4.1 (3.5-5.1) mmol/L Chloride 104 (98-107) mmol/L Carbon Dioxide 27 (22-30) mmol/L Anion Gap 8 mmol/L BUN 20 H (7-17) mg/dL Creatinine 0.83 (0.52-1.04) mg/dL Est GFR (CKD-EPI)AfAm 83 (>60 ml/min/1.73 sqM) Est GFR (CKD-EPI)NonAf 72 (>60 ml/min/1.73 sqM) Glucose 110 H (74-99) mg/dL Calcium 9.3 (8.4-10.2) mg/dL Total Bilirubin 0.4 (0.2-1.3) mg/dL AST 24 (14-36) U/L ALT 19 (4-34) U/L Alkaline Phosphatase 70 (38-126) U/L Total Protein 6.9 (6.3-8.2) g/dL Albumin 3.9 (3.5-5.0) g/dL Lipase 104 (23-300) U/L Urine Color Urine Appearance (Clear) Urine pH (5.0-8.0) Ur Specific [place] (1.001-1.035) Urine Protein (Negative) Urine Glucose (UA) (Negative) Urine Ketones (Negative) Urine Blood (Negative) Urine Nitrite (Negative) Urine Bilirubin (Negative) Urine Urobilinogen (<2.0) mg/dL Ur Leukocyte Esterase (Negative) Urine RBC (0-5) /hpf Urine WBC (0-5) /hpf Ur Squamous Epith Cells (0-4) /hpf Urine Mucus (None) /hpf Disposition Clinical Impression: Postmenopausal bleeding Disposition: HOME SELF-CARE Condition: Stable Instructions (If sedation given, give patient instructions): Dysfunctional Uterine Bleeding (ED) Additional Instructions: Please follow-up with Dr. Gomez for further management of your bleeding. Return to the emergency room for any new or worsening symptoms Is patient prescribed a controlled substance at d/c from ED?: No Referrals: Stephanie Carreon MD [Primary Care Provider] - 1-2 days Brissa Gomez DO [Doctor of Osteopathic Medicine] - 1-2 days Time of Disposition: 18:00
[2021-03-16 18:08] VITALS: BP 141/87; PULSE 72
== END 2021-03-16 18:07 | disposition home or self-care (01) ==
LOC: EC 12:33
DX: N95.0 Postmenopausal bleeding (principal); I10 Essential (primary) hypertension; E78.5 Hyperlipidemia, unspecified; J45.909 Unspecified asthma, uncomplicated; K21.9 Gastro-esophageal reflux disease without esophagitis; Z79.82 Long term (current) use of aspirin; Z79.51 Long term (current) use of inhaled steroids; Z79.899 Other long term (current) drug therapy
CPT/HCPCS: 36415; 76856; 80053; 81001; 83690; 85025; 85610; 85730; 99284

== ENCOUNTER → 2022-04-27 | Outpatient (CLI) | payer MEDICARE ==
--- NOTE | 2022-04-27 09:15 | US ---
EXAMINATION TYPE: US abdomen complete DATE OF EXAM: 04/27/2022 COMPARISON: US 02/27 CLINICAL HISTORY: K76.89 DISEASES OF LIVER. follow up on prior imaging TECHNIQUE: Multiple sonographic images of the abdomen are obtained. FINDINGS: EXAM MEASUREMENTS: Liver Length: 17.3 cm Gallbladder Wall: 0.2 cm CBD: 0.4 cm Spleen: 8.6 cm Right Kidney: 10.0 x 3.3 x 4.7 cm Left Kidney: 9.9 x 4.8 x 5.0 cm [employer]ATOR NOTES: Pancreas: Tail obscured by overlying bowel gas; wnl as seen Liver: Hepatomegaly, attenuating, 3.8 x 3.4 x 3.6cm septated cyst at the lower aspect of the right l obe. Previous measurement 3.1 x 3.2 x 3.2 cm. Gallbladder: wnl Evidence for sonographic Hale's sign: no CBD: wnl Spleen: wnl Right Kidney: wnl Left Kidney: seen with a 2.5 x 1.9 x 2.5cm simple appearing cyst at the mid anterior pole Upper IVC: wnl Abd Aorta: wnl IMPRESSION: 1. Slight enlargement of a complex cyst right lobe liver. 2. Simple appearing left renal cyst. 3. Hepatomegaly
--- NOTE | 2022-04-28 08:44 | MM ---
Reason for Exam: Screening (asymptomatic). Last screening mammogram was performed 12 month(s) ago. Patient History: Menarche at age 12. First Full-Term at age 16. Postmenopausal. Patient has history of breast feeding. Sister had breast cancer, age 54. Risk Values: Jelly 5 year model risk: 3.3%. NCI Lifetime model risk: 8.4%. Prior Study Comparison: 09/27/2018 Left Diagnostic Mammogram, [facility]. 10/28/2019 Bilateral Screening Mammogram, [facility]. 04/26/2021 Bilateral Screening Mammogram, [facility]. Tissue Density: There are scattered fibroglandular densities. Findings: Analyzed By CAD. There is no suspicious group of microcalcifications in either breast. Benign calcifications within both breasts. Asymmetry demonstrated within the left breast only on the MLO view at middle depth. Overall Assessment: Incomplete: need additional imaging evaluation, BI-RAD 0 Management: Diagnostic Mammogram of the left breast. A clinical breast exam by your physician is recommended on an annual basis and results should be correlated with mammographic findings. [facility] will attempt to contact patient to return for supplemental views and ultrasound if indicated. Electronically signed and approved by: Maykel Kelly D.O.
== END | disposition home or self-care (01) ==
LOC: RADMAMWWP 07:52
PROVIDERS: ATTEND Pediatrics
DX: Z12.31 Encounter for screening mammogram for malignant neoplasm of breast (principal); K76.89 Other specified diseases of liver; N28.1 Cyst of kidney, acquired; R16.0 Hepatomegaly, not elsewhere classified; Z78.0 Asymptomatic menopausal state; Z80.3 Family history of malignant neoplasm of breast
CPT/HCPCS: 76700; 77063; 77067

== ENCOUNTER → 2022-05-05 | Outpatient (CLI) | payer MEDICARE ==
--- NOTE | 2022-05-05 09:36 | MM ---
Reason for Exam: Additional evaluation requested from abnormal screening. Last screening mammogram was performed less than 1 month ago. Patient History: Menarche at age 12. First Full-Term at age 16. Postmenopausal. Patient has history of breast feeding. Sister had breast cancer, age 54. Risk Values: Jelly 5 year model risk: 3.3%. NCI Lifetime model risk: 8.4%. Prior Study Comparison: 10/28/2019 Bilateral Screening Mammogram, [facility]. 04/26/2021 Bilateral Screening Mammogram, [facility]. 04/27/2022 Bilateral MG 3D screening mammo w/cad, [facility]. Tissue Density: Left: There are scattered fibroglandular densities. Findings: Analyzed By CAD. Under compression no persistent suspicious densities evident. Mediolateral view appears unremarkable. No suspicious groups of microcalcifications, spiculated or lobular masses, architectural distortion or other secondary signs of malignancy are mammographically apparent. Overall Assessment: Probably benign, BI-RAD 3 Management: Diagnostic Mammogram of the left breast in 6 months. A negative mammogram report should not preclude additional follow up of suspicious palpable abnormalities. Patient should continue monthly self breast exam. A clinical breast exam by your physician is recommended on an annual basis and results should be correlated with mammographic findings. Electronically signed and approved by: Toni Lazo D.O. Radiologis
== END | disposition home or self-care (01) ==
LOC: RADMAMWWP 08:58
PROVIDERS: ATTEND Pediatrics
DX: R92.8 Other abnormal and inconclusive findings on diagnostic imaging of breast (principal); Z78.0 Asymptomatic menopausal state; Z80.3 Family history of malignant neoplasm of breast
CPT/HCPCS: 77065; G0279; 77061

== ENCOUNTER → 2023-05-17 | Outpatient (CLI) | payer MEDICARE, OTHER ==
--- NOTE | 2023-05-17 13:40 | USB ---
Reason for Exam: Additional evaluation requested from abnormal screening. Patient History: Menarche at age 12. First Full-Term at age 16. Postmenopausal. Patient has history of breast feeding. Sister had breast cancer, age 54. Risk Values: Jelly 5 year model risk: 3.3%. NCI Lifetime model risk: 7.9%. Technique: Method: Targeted. Prior Study Comparison: 04/26/2021 Bilateral Screening Mammogram, [facility]. 04/27/2022 Bilateral MG 3D screening mammo w/cad, [facility]. 05/05/2022 Left MG 3D work up w/cad , [facility]. Findings: The medial section of the breast of the left breast, the axilla of the left breast and the retroareolar of the left breast were scanned. Small cysts noted at the left 9:00 position measuring 5 mm 5 cm from the nipple. No solid mass is seen. Overall Assessment: Benign, BI-RAD 2 Management: Screening Mammogram of both breasts in 1 year. A clinical breast exam by your physician is recommended on an annual basis and results should be correlated with mammographic findings. This exam should not preclude additional follow-up of suspicious palpable abnormalities. Results were given to the patient verbally at the time of exam. Electronically signed and approved by: Ethan Medina M.D. Radiologis
--- NOTE | 2023-05-18 11:34 | MM ---
Reason for Exam: Additional evaluation requested from prior study. Last mammogram was performed 1 year(s) and 1 month(s) ago. Patient History: Menarche at age 12. First Full-Term at age 16. Postmenopausal. Patient has history of breast feeding. Sister had breast cancer, age 54. Risk Values: Jelly 5 year model risk: 3.3%. NCI Lifetime model risk: 7.9%. Tissue Density: There are scattered fibroglandular densities. Findings: Analyzed By CAD. Persistent nodular density left 9:00 position. Ultrasound. Benign vascular and punctate calcifications noted. Overall Assessment: Incomplete: need additional imaging evaluation, BI-RAD 0 Management: Diagnostic Breast Ultrasound of the left breast. . Results were given to the patient verbally at the time of exam. Patient should continue monthly self-breast exams. A clinical breast exam by your physician is recommended on an annual basis. This exam should not preclude additional follow-up of suspicious palpable abnormalities. Note on Jelly scores and lifetime risk: 1. A Jelly score greater than 3% is considered moderate risk. If this is the case, consider specialist referral to assess eligibility for a risk reducing agent. 2. If overall lifetime risk for the development of breast cancer is 20% or higher, the patient may qualify for future screening with alternating mammogram and breast MRI. Electronically signed and approved by: Ethan Medina M.D. Radiologis
== END | disposition home or self-care (01) ==
LOC: RADMAMWWP 12:35
PROVIDERS: ATTEND Pediatrics
DX: N60.12 Diffuse cystic mastopathy of left breast (principal); R92.323 Mammographic fibroglandular density, bilateral breasts; Z78.0 Asymptomatic menopausal state; Z80.3 Family history of malignant neoplasm of breast
CPT/HCPCS: 77066; 76642; G0279; 77062

== ENCOUNTER → 2024-07-15 | Outpatient (CLI) | payer MEDICARE, OTHER ==
--- NOTE | 2024-07-15 12:00 | MM ---
Reason for Exam: Screening (asymptomatic). Last mammogram was performed 1 year(s) and 2 month(s) ago. Patient History: Menarche at age 12. First Full-Term at age 16. Postmenopausal. Patient has history of breast feeding. Sister had breast cancer, age 54. Risk Values: Jelly 5 year model risk: 3.3%. NCI Lifetime model risk: 7.5%. Prior Study Comparison: 04/27/2022 Bilateral MG 3D screening mammo w/cad, [facility]. 05/05/2022 Left MG 3D work up w/cad LT, [facility]. 05/17/2023 Bilateral MG 3D diag mammo w/cad [facility], [facility]. Tissue Density: There are scattered areas of fibroglandular density. Findings: Analyzed By CAD. Benign bilateral vascular calcifications. Subtle nodularity central right MLO view middle depth persists on 3-D images. A benign etiology is suspected given isodense to low density. However, not clearly seen previously. Further evaluation recommended. Otherwise, no significant change. Overall Assessment: Incomplete: need additional imaging evaluation, BI-RAD 0 Management: Special View Mammogram of the right breast. See note below in regards to the patient's increased 5 year Jelly score. [facility] will attempt to contact patient to return for supplemental views and ultrasound if indicated. Note on Jelly scores and lifetime risk: 1. A Jelly score greater than 3% is considered moderate risk. If this is the case, consider specialist referral to assess eligibility for a risk reducing agent. 2. If overall lifetime risk for the development of breast cancer is 20% or higher, the patient may qualify for future screening with alternating mammogram and breast MRI. [facility], , 07/15/2024 11:57 AM. Electronically signed and approved by: Shahida Sewell M.D. Radiologist
== END | disposition home or self-care (01) ==
LOC: RADMAMWWP 08:24
PROVIDERS: ATTEND Internal Medicine
DX: Z12.31 Encounter for screening mammogram for malignant neoplasm of breast (principal); R92.323 Mammographic fibroglandular density, bilateral breasts; Z78.0 Asymptomatic menopausal state; Z80.3 Family history of malignant neoplasm of breast
CPT/HCPCS: 77063; 77067

== ENCOUNTER → 2024-07-17 | Outpatient (CLI) | payer MEDICARE, OTHER ==
--- NOTE | 2024-07-17 08:53 | MM ---
Reason for Exam: Additional evaluation requested from abnormal screening. Last screening mammogram was performed less than 1 month ago. Patient History: Menarche at age 12. First Full-Term at age 16. Postmenopausal. Patient has history of breast feeding. Sister had breast cancer, age 54. Risk Values: Jelly 5 year model risk: 3.3%. NCI Lifetime model risk: 7.5%. Prior Study Comparison: 10/28/2019 Bilateral Screening Mammogram, [facility]. 04/27/2022 Bilateral MG 3D screening mammo w/cad, [facility]. 05/05/2022 Left MG 3D work up w/cad LT, [facility]. 05/17/2023 Bilateral MG 3D diag mammo w/cad [facility], [facility]. 07/15/2024 Bilateral MG 3D screening mammo w/cad, [facility]. Tissue Density: Right: There are scattered areas of fibroglandular density. Findings: Analyzed By CAD. The questioned area of central asymmetric density anterior to middle depth right MLO view disperses on additional views. Findings compatible with benign superimposition shadow. Overall Assessment: Benign, BI-RAD 2 Management: Screening Mammogram of both breasts in 1 year. See note below in regards to the patient's increased 5 year Jelly score. Results were given to the patient verbally at the time of exam. Patient should continue monthly self-breast exams. A clinical breast exam by your physician is recommended on an annual basis. This exam should not preclude additional follow-up of suspicious palpable abnormalities. Note on Jelly scores and lifetime risk: 1. A Jelly score greater than 3% is considered moderate risk. If this is the case, consider specialist referral to assess eligibility for a risk reducing agent. 2. If overall lifetime risk for the development of breast cancer is 20% or higher, the patient may qualify for future screening with alternating mammogram and breast MRI. [facility], , 07/17/2024 8:50 AM. Electronically signed and approved by: Shahida Sewell M.D. Radiologist
== END | disposition home or self-care (01) ==
LOC: RADMAMWWP 08:22
PROVIDERS: ATTEND Internal Medicine
DX: R92.8 Other abnormal and inconclusive findings on diagnostic imaging of breast (principal); R92.321 Mammographic fibroglandular density, right breast; Z78.0 Asymptomatic menopausal state; Z80.3 Family history of malignant neoplasm of breast
CPT/HCPCS: 77061; 77065